=== PATIENT | female | born 1990 | race Caucasian/White ===

== ENCOUNTER 2024-04-04 11:48 | Inpatient (IN) | payer MEDICAID, SELFPAY ==
--- NOTE | 2024-04-04 12:07 | ED_ITS ---
HPI - Psych General Chief Complaint: Psychiatric Symptoms Stated Complaint: SI PER EMS Time Seen by Provider: 04/04/24 11:59 Source: patient and EMS Mode of arrival: EMS Limitations: no limitations History of Present Illness ED Provider: CEASAR VARELA Narrative: 34 yo female with depression and opiate use disorder occasional ETOH use no hx of withdrawal seizures who presents here with SI. Was here with a friend who just left her here and now has no one and she notes she is not able to get her methadone dose and she feels helpless and has SI. No plan reported. MD complaint: suicidal ideation and feels depressed Onset (ago): day(s) (few) Duration: constant History of same: Yes Relieving factors: none Exacerbating factors: other Context: significant life stressor Associated psychiatric symptoms: depression and suicidal ideation Associated symptoms: denies other symptoms Treatments prior to arrival: none If self harm: admits thoughts of self harm Related Data Home Medications ?Medication ?Instructions ?Recorded ?Confirmed methadone 10 mg/mL oral 136 mg PO DAILY 04/04/24 04/04/24 concentrate (Methadone Intensol) Allergies Allergy/AdvReac Type Severity Reaction Status Date / Time paroxetine [From Paxil] Allergy Severe Seizure Verified 04/04/24 12:36 Review of Systems 2 Review of Systems: Constitutional : No Fever, No Chills ENT/Mouth : No Ear Pain, No Nasal Congestion, No sore throat Eyes: No Eye Pain, No Swelling, No Redness Cardiovascular : No Chest Pain, No SOB Respiratory : No Cough, No Sputum, No Dyspnea Gastrointestinal : No Nausea, No Vomiting, No Diarrhea, No Hematochezia, No Melena Genitourinary : No Dysuria, No Urinary Frequency, No Hematuria Musculoskeletal : No Myalgias Skin : No Skin Lesions, No rash Neuro : No Weakness, No Numbness, No Paresthesias, No Dizziness, No Headache Psych : positive Anxiety, positive Depression, positive SI no HI All other systems reviewed and are negative [facility] Past Medical History Attestation statement: The following information was validated with the patient. Source: old records reviewed Medical History (Updated 04/04/24 @ 13:40 by Ines George DO) Opiate use Depression Social History Social History (Updated 04/04/24 @ 12:43 by Ines George DO) Alcohol intake: current Patient Tobacco Use Status: Current someday Tobacco user Substance Use Type: Opiates Advance Directives: No Advance Directives Information Provided: No Physical Exam 2 Vital Signs: Vital Signs: Last Vital Signs Temp 97.9 F 04/04/24 12:20 Pulse 66 04/04/24 12:20 Resp 16 04/04/24 12:20 BP 145/95 H 04/04/24 12:20 Pulse Ox 100 04/04/24 12:20 O2 Del Method Room Air 04/04/24 12:20 BMI result Body Mass Index 25.7 Appearance: Alert. Oriented X3. No acute distress. Eyes: Pupils equal, round and reactive to light. ENT: Pharynx normal. Neck: Normal inspection. Neck supple. CVS: Normal heart rate and rhythm. Pulses normal. Respiratory: No respiratory distress. Breath sounds normal. Abdomen: Soft and non-tender. Skin: Skin warm and dry. Normal skin color. Extremities: No lower extremity edema. Neuro: Oriented X 3. No motor deficit. No sensory deficit. CN2-12 intact Course Course Course Narrative: mild anemia normal VS suspect chronic Medical Decision Making Medical Decision Making MDM Narrative: 34 yo female with depression and opiate use disorder here with c/o depresison and SI in setting of poor social support and being stranded here. No plan reported. At this time basic labs and CARE team consult, plan to verify her last methadone dose Differential Diagnosis Differential Diagnoses: The differential diagnosis associated with the presentation includes poor social support, lack of housing, opiate abuse Admission/Observation Consideration of admission/observation: Escalation of care including admission/observation considered physician observation started at 1244pm pending CARE team Consult Healthcare Provider Management of the patient was discussed with: Behavioral Health Provider Lab Data [facility] Lab Attestation statement: I reviewed the patient's lab results. 04/04/24 12:54 04/04/24 12:53 Labs: Lab Results 04/04/24 04/04/24 Range/Units 12:53 12:54 WBC 9.1 (4.8-10.8) X10*3/uL RBC 3.96 L (4.20-5.50) X10*6/uL Hgb 9.5 L (12.0-16.0) g/dl Hct 30.2 L (37.0-47.0) % MCV 76.3 L (80.0-98.0) fL MCH 24.0 L (27.0-33.0) pg MCHC 31.5 (31.0-35.0) g/dl RDW 19.7 H (11.0-16.0) % Plt Count 396 (160-400) X10*3/uL MPV 9.2 L (9.4-12.3) fL Immature Gran % (Auto) 0.3 (0.0-0.4) % Neut % (Auto) 52.7 (45-73) % Lymph % (Auto) 35.3 (20-40) % [place] % (Auto) 7.3 (2-11) % Eos % (Auto) 3.5 (0-4) % Baso % (Auto) 0.9 (0-2) % Lymph # (Auto) 3.2 (1.2-4.9) X10*3/uL [place] # (Auto) 0.7 (0.1-1.2) X10*3/uL Eos # (Auto) 0.3 (0.0-0.4) X10*3/uL Baso # (Auto) 0.1 (0.0-0.2) X10*3/uL Abs Immat Gran (auto) 0.03 (0.00-0.03) X10*3/uL Absolute Neuts (auto) 4.8 (2.0-8.3) x10*3/uL Absolute Nucleated RBC 0.000 (0.0-0.012) X10*3/uL Nucleated RBC % (auto) 0.0 (0.0-0.2) /100WBC Sodium 142 (135-145) mmol/L Potassium 3.8 (3.3-5.1) mmol/L Chloride 105 (96-108) mmol/L Carbon Dioxide 26 (22-29) mmol/L Anion Gap 15 (12-20) BUN 7 L (9-16) mg/dL Creatinine 0.63 (0.5-1.4) mg/dL Estim Creat Clear Calc 116.8 Estimated GFR > 60 Random Glucose 71 (60-115) mg/dL Calcium 9.9 (8.4-10.2) mg/dL Total Bilirubin 0.4 (0.0-1.0) mg/dL Direct Bilirubin 0.2 (0.0-0.5) mg/dL AST 14 (5-31) U/L ALT 17 (0-31) U/L Alkaline Phosphatase 93 (39-117) U/L Total Protein 7.4 (6.5-8.0) g/dL Albumin 4.3 (3.5-5.0) g/dL Beta HCG, Quant < 2 mIU/mL Ethyl Alcohol < 10 mg/dL Social Determinants Patient?s care significantly limited by Social Determinants of Health including: Inadequate housing and Problems related to primary support group Discharge Plan Discharge Clinical Impression: Depression, Anemia Patient Disposition: Still a Patient Instructions: Depression (ED), Anemia (ED) Prescriptions: No Action methadone [Methadone Intensol] 10 mg/mL Concentrate 136 mg PO DAILY Print Language: Bengali
[2024-04-04 12:20] VITALS: BP 140/90; BP 145/95; PULSE 66; PULSE 89; RESP 16; TEMP 36.6; O2SAT 100; O2SAT 97; BMI 25.7
[2024-04-04 13:01] LABS: MANUAL DIFF FLAG NO
[2024-04-04 13:04] LABS: Basophils Absolute Auto 0.1 X10*3/uL (0.0-0.2); Basophils Percent Auto 0.9 % (0-2); Eosinophils Absolute Auto 0.3 X10*3/uL (0.0-0.4); Eosinophils Percent Auto 3.5 % (0-4); Hematocrit 30.2 % (37.0-47.0); Hemoglobin 9.5 g/dl (12.0-16.0); Imm Gran Abs Auto 0.03 X10*3/uL (0.00-0.03); Imm Gran Pct Auto 0.3 % (0.0-0.4); Lymphocytes Absolute Auto 3.2 X10*3/uL (1.2-4.9); Lymphocytes Percent Auto 35.3 % (20-40); Mean Corpuscular HGB Conc 31.5 g/dl (31.0-35.0); Mean Corpuscular Volume 76.3 fL (80.0-98.0); Mean Platelet Volume 9.2 fL (9.4-12.3); Monocytes Absolute Auto 0.7 X10*3/uL (0.1-1.2); Monocytes Percent Auto 7.3 % (2-11); Neutrophils Absolute Auto 4.8 x10*3/uL (2.0-8.3); Neutrophils Percent Auto 52.7 % (45-73); Platelet Count 396 X10*3/uL (160-400); Red Blood Count 3.96 X10*6/uL (4.20-5.50); Red Cell Distribution Width 19.7 % (11.0-16.0); White Blood Count 9.1 X10*3/uL (4.8-10.8)
--- NOTE | 2024-04-04 13:28 | HE.PHANOTE ---
RE METHADONE VERIFICATION LAST DOSE 136 MG GIVEN 04/03/24 @ [facility] [place] ([phone])
[2024-04-04 13:38] LABS: Alanine Aminotransferase 17 U/L (0-31); Albumin Level 4.3 g/dL (3.5-5.0); Alkaline Phosphatase 93 U/L (39-117); Anion Gap 15 (12-20); Aspartate Amino Transferase 14 U/L (5-31); Bilirubin Direct 0.2 mg/dL (0.0-0.5); Bilirubin Total 0.4 mg/dL (0.0-1.0); Blood Urea Nitrogen 7 mg/dL (9-16); Calcium 9.9 mg/dL (8.4-10.2); Carbon Dioxide 26 mmol/L (22-29); Chloride 105 mmol/L (96-108); Creatinine Clr Calc Pharmacy 116.8; Estimated Glomerular Filt Rate > 60; Ethanol < 10 mg/dL; Glucose Random 71 mg/dL (60-115); HCG Quantitative < 2 mIU/mL; Potassium 3.8 mmol/L (3.3-5.1); Sodium 142 mmol/L (135-145); Total Protein 7.4 g/dL (6.5-8.0)
[2024-04-04] MEDS: methADONE HCl 20 MG/2 ML ORAL.CONC 136 MG PO (13:56)
[2024-04-04 14:43] VITALS: RESP 14
[2024-04-04 16:49] LABS: Appearance Urine Clear; Color Urine Yellow; Glucose Urine UA Negative (Negative); Leukocyte Esterase Urine Negative (Negative); Nitrite Urine Negative (Negative); Urine Blood Negative (Negative); Urine Ketones 15 mg/dL (Negative); Urine Protein Negative (Neg-Trace)
[2024-04-04 16:51] LABS: UPreg QC Valid YES; Urine Pregnancy NEGATIVE (NEGATIVE)
[2024-04-04 17:08] LABS: Amphetamine Screen Urine Not Detected (Not Detect); Barbiturates, Urine Not Detected (Not Detect); Benzodiazepines Screen Urine Not Detected (Not Detect); Buprenorphine Scr Not Detected (Not Detect); Cannabinoid Screen Urine Not Detected (Not Detect); Cocaine Screen Urine POSITIVE (Not Detect); Fentanyl, urine POSITIVE (Not Detect); Methadone Screen, Urine Positive (Not Detect); Opiate Screen Urine POSITIVE (Not Detect); Oxycodone Screen Urine Not Detected (Not Detect); Phencyclidine Screen Urine Not Detected (Not Detect)
--- NOTE | 2024-04-04 17:50 | PC.NURSE ---
Marlene comes to the ED today for increasing suicidal thoughts secondary to increasing life stressors. She is calm and cooperative, help seeking, offering no complaints at this time. Patient changed over without issue, methadone verified by this RN. Medications administered per MAR. patient aware of plan of care to see CARE team
[2024-04-04 17:52] VITALS: BP 140/78; PULSE 70; RESP 14; TEMP 36.3; O2SAT 100
[2024-04-04 21:00] VITALS: BP 130/76; PULSE 75; RESP 18; TEMP 36.4; O2SAT 100
[2024-04-04 22:29] VITALS: BP 130/76
[2024-04-04] MEDS: traZODone HCL 100 MG TABLET PO (22:29)
[2024-04-04] MEDS: LORazepam 1 MG TABLET PO (22:29)
[2024-04-04] MEDS: cloNIDine HCL 0.2 MG TABLET PO (22:29)
--- NOTE | 2024-04-05 | ECG_ITS ---
Test Reason : CHECK QTC Blood Pressure : / mmHG Vent. Rate : 050 BPM Atrial Rate : 050 BPM P-R Int : 140 ms QRS Dur : 098 ms QT Int : 494 ms P-R-T Axes : 045 063 043 degrees QTc Int : 450 ms Sinus bradycardia Otherwise normal ECG No previous ECGs available Referred By: Tammy Murray Electronically Signed By:KAREN CARDENAS
[2024-04-05 06:00] VITALS: BP 115/70; PULSE 62; RESP 16; TEMP 36.5; O2SAT 98
--- NOTE | 2024-04-05 06:50 | PC.NURSE ---
Patient slept through the night, no distress observed/reported, med and meal compliant, no behavior and safety concerns, disposition per care team current provider, VSVashti, will continue to monitor
[2024-04-05] MEDS: buPROPion HCl XL 150 MG TAB.ER.24H PO (09:21)
[2024-04-05 09:22] VITALS: BP 115/70
[2024-04-05] MEDS: methADONE HCl 20 MG/2 ML ORAL.CONC 136 MG PO (09:22)
[2024-04-05] MEDS: cloNIDine HCL 0.2 MG TABLET PO ×2 (09:22→20:53)
--- NOTE | 2024-04-05 14:46 | PC.NURSE ---
This Rn did report the patient's HR of 50 to attending and no changes are to be made at this time.
[2024-04-05 14:56] VITALS: BP 91/47; PULSE 61; RESP 12; TEMP 36.6; O2SAT 97
[2024-04-05 17:50] VITALS: BP 112/63; PULSE 63; RESP 17; TEMP 36.3; O2SAT 97
[2024-04-05 18:10] VITALS: BMI 27.2
--- NOTE | 2024-04-05 18:34 | PC.ADMIT ---
Pt is a 34 year old cisgendered female admitted to from the POD at 1725 for SI without a plan. Marlene suffers from MDD, Borderline PD, hx of cutting (last cut 2 years ago),anxiety, PTSD, OUD, and cocaine use disorder. After 3 years clean from opiates and on Methadone, she relapsed 2 months ago after learning that her 3 year old son who was in foster care, is now an open adoption. She signed a CV with Dr. Retana and was pleasant and calm. She currently reports vague SI I have nothing to live for. I just don't want to wake up, I'd be better off , but denies plan and states she will come to staff if she feels SI with plan. She has had increased depression, suicidal thoughts, and has been using crack cocaine, fentanyl, marijuana, and drinking heavily 1-2 times per month, tox screen positive for stated and takes Methadone 136 mg daily and received her dose in the ED this am. Marlene reports she has a long hx of psychiatric illness reporting she attempted suicide by hanging when 13 years old, (mom found her),started cutting at 17, and has had IPLOC stays at [facility] in [place]. She is from [place] but ended up in [place], I was using with a friend and he decided to drop me off at the library so he could go home and sleep. EMS was called and brought her here to [facility]. She smokes cigarettes and vapes daily and is interested in NRT and an addictions medicine consult. She also reports having neurofibromatosis and states her gait can be unsteady at times and she did have a fall in the past 6 months. Given red socks and identified as fall risk. Skin check done with 2 RN's and large bruise noted to left inner thigh, I asked my friend to shoot me up but she didn't know how too . She also pointed out a healing abscess to posterior scalp that she said was previously drained. Pt was oriented to the unit and [facility] forms signed.
[2024-04-05 20:00] VITALS: BP 100/56; PULSE 70; RESP 18; TEMP 36.7; O2SAT 98
[2024-04-05 20:53] VITALS: BP 100/56
[2024-04-05] MEDS: traZODone HCL 100 MG TABLET PO (20:54)
[2024-04-05] MEDS: hydrOXYzine HCL 25 MG TABLET PO (20:55)
[2024-04-06] MEDS: Acetaminophen 325 MG TABLET 650 MG PO ×2 (05:10→18:56)
[2024-04-06] MEDS: methADONE HCl 20 MG/2 ML ORAL.CONC 136 MG PO (07:50)
[2024-04-06 08:00] VITALS: BP 90/54; PULSE 56; RESP 14; TEMP 36.2
[2024-04-06 08:23] LABS: MANUAL DIFF FLAG NO
[2024-04-06 08:28] LABS: Basophils Absolute Auto 0.1 X10*3/uL (0.0-0.2); Basophils Percent Auto 0.5 % (0-2); Eosinophils Absolute Auto 0.2 X10*3/uL (0.0-0.4); Eosinophils Percent Auto 1.4 % (0-4); Hematocrit 29.6 % (37.0-47.0); Imm Gran Abs Auto 0.07 X10*3/uL (0.00-0.03); Imm Gran Pct Auto 0.5 % (0.0-0.4); Lymphocytes Absolute Auto 2.1 X10*3/uL (1.2-4.9); Lymphocytes Percent Auto 14.9 % (20-40); Mean Corpuscular HGB Conc 30.4 g/dl (31.0-35.0); Mean Corpuscular Hemoglobin 23.4 pg (27.0-33.0); Mean Corpuscular Volume 77.1 fL (80.0-98.0); Mean Platelet Volume 9.2 fL (9.4-12.3); Monocytes Percent Auto 6.9 % (2-11); Neutrophils Absolute Auto 10.9 x10*3/uL (2.0-8.3); Neutrophils Percent Auto 75.8 % (45-73); Platelet Count 361 X10*3/uL (160-400); Red Blood Count 3.84 X10*6/uL (4.20-5.50); Red Cell Distribution Width 20.3 % (11.0-16.0); White Blood Count 14.3 X10*3/uL (4.8-10.8)
[2024-04-06 08:34] LABS: Estimated Average Glucose 105 mg/dL; Hemoglobin A1c % 5.3 % (<6.0)
[2024-04-06 08:45] LABS: Cholesterol 108 mg/dL (<200); HDL Cholesterol 34 mg/dL (>40); LDL Cholesterol Calculated 59 mg/dL (<100); Triglycerides 76 mg/dL (<150)
[2024-04-06] MEDS: buPROPion HCl XL 150 MG TAB.ER.24H PO (08:55)
[2024-04-06 09:00] LABS: TSH reflex Free T4 0.14 uIU/mL (0.32-4.0)
[2024-04-06] MEDS: Nicotine 21 MG PATCH.TD24 TRANSDERMA (09:26)
[2024-04-06 09:40] LABS: Free T4 (Free Thyroxine) 0.87 ng/dL (0.71-1.85)
[2024-04-06 11:22] VITALS: BP 92/62
[2024-04-06] MEDS: cloNIDine HCL 0.2 MG TABLET PO ×2 (11:22→20:04)
[2024-04-06] MEDS: ARIPiprazole 5 MG TABLET PO (13:19)
[2024-04-06] MEDS: Throat Lozenge, Medicated LOZENGE 1 LOZENGE MUCOUS MEM ×2 (13:33→16:21)
[2024-04-06] MEDS: Baclofen 10 MG TABLET PO ×2 (15:13→20:04)
[2024-04-06 16:14] LABS: IDNOW Serial# 08D9AD1C; Strep A Nucleic Acid Positive (Negative)
[2024-04-06] MEDS: Throat Spray, Medicated 177 ML BOTTLE 1 SPRAY MUCOUS MEM ×2 (16:15→18:57)
--- NOTE | 2024-04-06 16:38 | HO.PSYADMNOT ---
HPI Date of Service: 04/06/24 Chief Complaint: SI Sources of Information: patient interviewed, chart reviewed and crisis/core team assessment reviewed HPI Subjective Notes: Reddy Warning and Conditional Voluntary Healthcare Proxy: No Guardianship: No Medical Problems Affecting Mental Status: No Narrative: 34 yo female, history of depression, presents with SI. Pt from [facility]. Reports 60-80 lb weight loss, relapse and increase in depressive sx due to loss of 3 yo to DCF in open adoption process. Garrett, her son had last visit with pt on 04/01. Reports she was told that reunification would be trialed and then was told she had to sign rights over to foster parents. She was told she would be allowed to keep in contact but then was told no and she needed to say good-bye. Now my life has nothing to show . Pt has an 11 yo child who lives with her mother whom she has contact with in addition. As a result, pt relapsed on cocaine, fentanyl. Feels in a rut. Hopes to improve how she feels psychiatrically and physically while in pt. Reports sore throat, chronic IBS-C, irregular menses, Neurofibromatosis without follow up in 18 years and a recent cyst which was drained 03/22/24 on the back of her scalp that has healed. Past Psychiatric History: IP: Several, the last being 3 years ago during with [facility] OP: [facility]-[place] [facility], [facility] [employer] for meds Trials: Multiple Medical Evaluation Reviewed: Yes [facility] Medical History (Updated 04/06/24 @ 18:38 by Saskia Dove, JARRED) Polysubstance use disorder Recurrent major depression Opiate use Depression Narrative: Neurofibromatosis IBS-C Irregular Menses 60-80 lb wt loss [employer] Family History: mental health issues Social History: Born in [place], Raised by both parents, Hx ADHD, 2 siblings, an older sister and a younger brother with severe mental health issues. Pt graduated high school and did start college Two children, ages 11 and 3 Substance History: Recent relapse Fentanyl, Cocaine Hx of Heroin, Fentanyl, Crack, Cocaine, some alcohol. Hx of treatment 2021 IOL, 2019. Believes 6 interventions in all Trauma History: Affirms Diagnostics Vital Signs (24Hr): Vital Signs - 24 hr 04/05/24 17:50 04/05/24 20:00 04/05/24 20:53 Temperature 97.3 F 98.1 F Pulse Rate 63 70 Respiratory Rate 17 18 Blood Pressure 112/63 100/56 L 100/56 L Pulse Oximetry 97 98 Oxygen Delivery Method Room Air Room Air 04/06/24 08:00 04/06/24 11:22 Temperature 97.1 F Pulse Rate 56 Respiratory Rate 14 Blood Pressure 90/54 L 92/62 Pulse Oximetry Oxygen Delivery Method BMI result Body Mass Index 27.2 Labs 04/06/24 08:12 04/04/24 12:53 Labs: Laboratory Results - last 48 hr 04/04/24 04/06/24 04/06/24 16:27 08:12 15:39 WBC 14.3 H RBC 3.84 L Hgb 9.0 L Hct 29.6 L MCV 77.1 L MCH 23.4 L MCHC 30.4 L RDW 20.3 H Plt Count 361 MPV 9.2 L Immature Gran % (Auto) 0.5 H Neut % (Auto) 75.8 H Lymph % (Auto) 14.9 L [place] % (Auto) 6.9 Eos % (Auto) 1.4 Baso % (Auto) 0.5 Lymph # (Auto) 2.1 [place] # (Auto) 1.0 Eos # (Auto) 0.2 Baso # (Auto) 0.1 Abs Immat Gran (auto) 0.07 H Absolute Neuts (auto) 10.9 H Absolute Nucleated RBC 0.000 Nucleated RBC % (auto) 0.0 Estimat Average Glucose 105 Hemoglobin A1c % 5.3 Triglycerides 76 Cholesterol 108 LDL Cholesterol, Calc 59 HDL Cholesterol 34 L TSH 0.14 L Free T4 0.87 Urine Color Yellow Urine Appearance Clear Urine pH 6.0 Ur Specific [place] 1.020 Urine Protein Negative Urine Glucose (UA) Negative Urine Ketones 15 Urine Blood Negative Urine Nitrite Negative Ur Leukocyte Esterase Negative Urine Test NEGATIVE Urine Opiates Screen POSITIVE H Ur Buprenorphine Scrn Not Detected Ur Oxycodone Screen Not Detected Urine Methadone Screen Positive H Urine Fentanyl Screen POSITIVE H Ur Barbiturates Screen Not Detected Ur Phencyclidine Scrn Not Detected Ur Amphetamines Screen Not Detected U Benzodiazepines Scrn Not Detected Urine Cocaine Screen POSITIVE H U Marijuana (THC) Screen Not Detected S. pyogenes GrpA KALPANA Positive A Meds/Allergies Meds Home Medications ?Medication ?Instructions ?Recorded ?Confirmed ?Type bupropion HCl 200 mg tablet,12 hr 200 mg PO QAM 04/04/24 04/04/24 History sustained-release clonidine HCl 0.2 mg tablet 0.2 mg PO BID 04/04/24 04/04/24 History lemborexant 5 mg tablet (Dayvigo) 5 mg PO DAILY 04/04/24 04/04/24 History methadone 10 mg/mL oral 136 mg PO DAILY 04/04/24 04/04/24 History concentrate (Methadone Intensol) trazodone 100 mg tablet 100 mg PO BEDTIME 04/04/24 04/04/24 History Allergies Allergies Allergy/AdvReac Type Severity Reaction Status Date / Time paroxetine [From Paxil] Allergy Severe Seizure Verified 04/04/24 12:36 Mental Status Exam Mental Status Exam Patient Appearance: Fatigued Patient Orientation: Person, Place, Time and Situation Level of Consciousness: Alert Patient Behavior: Talkative and Poor Eye Contact Mood Description: Depressed Affect Description: Flat Patient Cognition Impaired: No Ability to Follow Directions: Good Speech Pattern: Spontaneous Speech Memory Description: Intact Hallucinations: None Delusions: Not Present Perceptual Disturbances: Depersonalization and Derealization Thought Process: Rumination Thought Content: positive for Perseveration Depressive Symptoms: Increased Anxiety and Thoughts of /Suicide Judgement: Fair Assessment & Plan Assessment & Plan (1) Recurrent major depression: Status: Acute Code(s): F33.9 - Major depressive disorder, recurrent, unspecified (2) Polysubstance use disorder: Status: Acute Code(s): F19.90 - Other psychoactive substance use, unspecified, uncomplicated Plan Recurrent major depression Polysubstance Use Disorder Plan: Admit, CV, 15 minute checks Diagnostics-Strep/ROSY/Flu/RSV Positive strep-Pen VK 500 mg q8h x [address] in a private room due to strep + Monospot Nutrition consult Bowel regime-colace, miralax, senna, dulcolax prn Continue current regime Collateral contacts Full milieu Patient educated on: medication risk/benefits and medical condition Reason for continued inpatient stay Substantial Risk for: med/psych decompensation Statement Statement: I have reviewed the history and physical and performed a pertinent examination on my patient. No changes have occurred unless specified. If the History and Physical was not performed prior to admission, the Hospitalist's service will be consulted for completing the admission physical. Time Spent With Patient Time: Total time managing care of this patient today ____ minutes.
[2024-04-06 16:40] LABS: Influenza A PCR NEGATIVE (Negative); Influenza B PCR NEGATIVE (Negative); Resp Syncy Virus RNA Qual PCR NEGATIVE (Negative); SARS COV2 PCR INHOUSE NEGATIVE (Negative)
[2024-04-06 20:00] VITALS: BP 115/59; PULSE 80; RESP 17; TEMP 36.1; O2SAT 98
[2024-04-06 20:04] VITALS: BP 115/59
[2024-04-06] MEDS: Zolpidem Tartrate 5 MG TABLET PO (20:04)
[2024-04-06] MEDS: Docusate Sodium 100 MG CAPSULE PO (20:04)
[2024-04-06] MEDS: Penicillin V Potassium 250 MG TABLET 500 MG PO (20:04)
[2024-04-06] MEDS: Sennosides 8.6 MG TABLET PO (20:04)
[2024-04-06] MEDS: hydrOXYzine HCL 25 MG TABLET PO (20:04)
[2024-04-06] MEDS: traZODone HCL 100 MG TABLET PO (20:05)
[2024-04-07 07:00] VITALS: BMI 27.5
[2024-04-07] MEDS: methADONE HCl 20 MG/2 ML ORAL.CONC 136 MG PO (07:45)
[2024-04-07 08:00] VITALS: BP 103/54; PULSE 76; RESP 17; TEMP 36.9; O2SAT 94
[2024-04-07] MEDS: Nicotine 21 MG PATCH.TD24 TRANSDERMA (08:32)
[2024-04-07] MEDS: Penicillin V Potassium 250 MG TABLET 500 MG PO ×3 (08:32→20:14)
[2024-04-07] MEDS: ARIPiprazole 5 MG TABLET PO (08:33)
[2024-04-07] MEDS: Docusate Sodium 100 MG CAPSULE PO ×2 (08:33→20:14)
[2024-04-07] MEDS: Baclofen 10 MG TABLET PO ×3 (08:33→20:14)
[2024-04-07] MEDS: Acetaminophen 325 MG TABLET 650 MG PO (08:33)
[2024-04-07] MEDS: Throat Lozenge, Medicated LOZENGE 1 LOZENGE MUCOUS MEM ×2 (08:33→11:52)
[2024-04-07] MEDS: buPROPion HCl XL 150 MG TAB.ER.24H PO (08:34)
[2024-04-07] MEDS: polyethylene glycoL 3350 17 GM POWD.PACK PO (08:34)
[2024-04-07 09:29] LABS: Monotest Negative (Negative)
--- NOTE | 2024-04-07 11:47 | MHC.RECOVRN ---
AUDIT-C Brief Intervention Pt had positive screen for unhealthy alcohol use on admission, subsequently met with t/w to discuss alcohol use and recovery supports/options. Pt is not concerned regarding alcohol use but is aware that drinking at unhealthy levels is known to increase risk of alcohol related health problems. Pt reports alcohol use once per month. Pt reports alcohol use has not impacted health. Discussed risk reduction strategies including drinking below the recommended limit. Pt reports substance use is primary concern. Reports heroin/fentanyl use, up to 2 bundles daily, IN/INH/IV, as well as cocaine, INH, unknown amount, x 3 months. Pt reports she had been in recovery x 3 years but is going through the adoption process for her son which resulted in recurrence. Pt is currently receiving methadone, 136 mg x 3 years through an OTP in [place], where pt lives. Pt reports her mother is supportive as well as a couple friends. Provided pt with written resources including information on inpatient and outpatient treatment, JAYDEN, harm reduction, and recovery coaching. Pt plans to meet with the monomer recovery operator this evening. Pt provided with t/w contact information if questions or concerns arise. Denies other questions or concerns at this time.
[2024-04-07] MEDS: Ibuprofen 800 MG TABLET PO (11:52)
[2024-04-07] MEDS: Throat Spray, Medicated 177 ML BOTTLE 1 SPRAY MUCOUS MEM (11:56)
--- NOTE | 2024-04-07 12:16 | MHC.CLN ---
RE: CONSULT HT 63 WT 155# IBW 115#+/-10%, BMI 27.5 PT IS 135% IBW RANGES INDICATES OBESE FOR HT PT REPORTS 60-80# WT LOSS WITH UNKNOWN TIMEFRAME NO PREVIOUS WT HX AVAILABLE PT REPORTS FROM [facility] PT WITHOUT S/S MALNUTRITION AT THIS TIME ESTIMATED NUTRITION NEEDS: 1336KCALS, 58G PROTEIN, 1740ML FLUID REVIEWED LABS UNREMARKABLE; ALBUMIN 4.3 WNL DIET RX: REGULAR-APPROPRIATE PT RECEIVING ENSURE TID PROVIDES 1050KCALS, 60G PROTEIN PT REPORTS CONSUMING MEALS HERE SUPPLEMENT WILL OVER EXCEED ESTIMATED CALORIE NEEDS WITH GOOD PO INTAKE WITH MEALS RECOMMEND REDUCING ENSURE TO BID MONITOR PO INTAKE PT IS OF LOW NUTRITION RISK AT THIS TIME
--- NOTE | 2024-04-07 15:39 | P.PNPSI_ITS ---
Subjective Subjective Date of Service: 04/07/24 Reason For Visit: SI Subjective Notes: Conditional Voluntary Healthcare Proxy: No Guardianship: No Medical Problems Affecting Mental Status: No Interim History: Pt today is medically focused in her recovery from strep. She is resting, recovering. She tells team that she is not interested in referral to programs upon discharge but will return to her home in [place]. Medication Compliance: Yes Side effects from medications: No Attending Groups: No Review of Systems Acute medical concerns: No Strep Medical Review of Systems: unchanged Review of Systems Review of Systems strep Mental Status Exam Mental Status Exam Patient Appearance: Fatigued Patient Orientation: Person, Place, Time and Situation Level of Consciousness: Alert Patient Behavior: Talkative and Poor Eye Contact Mood Description: Depressed Affect Description: Flat Patient Cognition Impaired: No Ability to Follow Directions: Good Speech Pattern: Spontaneous Speech Memory Description: Intact Hallucinations: None Delusions: Not Present Perceptual Disturbances: Depersonalization and Derealization Thought Process: Rumination Thought Content: positive for Perseveration Depressive Symptoms: Increased Anxiety and Thoughts of /Suicide Judgement: Fair Diagnostics Vital Signs (24Hr): Vital Signs - 24 hr 04/06/24 20:00 04/06/24 20:04 04/07/24 08:00 Temperature 97.0 F 98.5 F Pulse Rate 80 76 Respiratory Rate 17 17 Blood Pressure 115/59 L 115/59 L 103/54 L Pulse Oximetry 98 94 Oxygen Delivery Method Room Air BMI result Body Mass Index 27.5 Labs 04/06/24 08:12 04/04/24 12:53 Labs: Laboratory Results - last 48 hr 04/06/24 04/06/24 04/06/24 08:12 15:39 15:52 WBC 14.3 H RBC 3.84 L Hgb 9.0 L Hct 29.6 L MCV 77.1 L MCH 23.4 L MCHC 30.4 L RDW 20.3 H Plt Count 361 MPV 9.2 L Immature Gran % (Auto) 0.5 H Neut % (Auto) 75.8 H Lymph % (Auto) 14.9 L [place] % (Auto) 6.9 Eos % (Auto) 1.4 Baso % (Auto) 0.5 Lymph # (Auto) 2.1 [place] # (Auto) 1.0 Eos # (Auto) 0.2 Baso # (Auto) 0.1 Abs Immat Gran (auto) 0.07 H Absolute Neuts (auto) 10.9 H Absolute Nucleated RBC 0.000 Nucleated RBC % (auto) 0.0 Estimat Average Glucose 105 Hemoglobin A1c % 5.3 Triglycerides 76 Cholesterol 108 LDL Cholesterol, Calc 59 HDL Cholesterol 34 L TSH 0.14 L Free T4 0.87 Monoscreen Influenza Type A (PCR) NEGATIVE Influenza Type B (PCR) NEGATIVE RSV RNA Qual (PCR) NEGATIVE SARS-CoV-2 RNA (RT-PCR) NEGATIVE S. pyogenes GrpA KAL[place]NA Positive A 04/07/24 08:20 WBC RBC Hgb Hct MCV MCH MCHC RDW Plt Count MPV Immature Gran % (Auto) Neut % (Auto) Lymph % (Auto) [place] % (Auto) Eos % (Auto) Baso % (Auto) Lymph # (Auto) [place] # (Auto) Eos # (Auto) Baso # (Auto) Abs Immat Gran (auto) Absolute Neuts (auto) Absolute Nucleated RBC Nucleated RBC % (auto) Estimat Average Glucose Hemoglobin A1c % Triglycerides Cholesterol LDL Cholesterol, Calc HDL Cholesterol TSH Free T4 Monoscreen Negative Influenza Type A (PCR) Influenza Type B (PCR) RSV RNA Qual (PCR) SARS-CoV-2 RNA (RT-PCR) S. pyogenes GrpA [place]NA Medications Medications Current Medications Acetaminophen (Acetaminophen 325 Mg Tablet) 650 mg PO Q6H PRN PRN Reason: Headache/Pain Mild Scale (1-3) Last Admin: 04/07/24 08:33 Dose: 650 mg Al Hydroxide/Mg Hydroxide (Magnesium Hydrox/Alum Hydrox 30 Ml Oral.Susp) 30 ml PO Q6H PRN PRN Reason: Heartburn/Nausea Aripiprazole (Aripiprazole 5 Mg Tablet) 5 mg PO DAILY [facility] Last Admin: 04/07/24 08:33 Dose: 5 mg Baclofen (Baclofen 10 Mg Tablet) 10 mg PO TID [facility] Last Admin: 04/07/24 14:23 Dose: 10 mg Benzocaine (Throat Lozenge, Medicated Lozenge) 1 lozenge MUCOUS MEM Q2H PRN PRN Reason: Sore Throat Last Admin: 04/07/24 11:52 Dose: 1 lozenge Bisacodyl (Bisacodyl 5 Mg Tablet.Dr) 10 mg PO DAILY PRN PRN Reason: Constipation Bupropion HCl (Bupropion Hcl Xl 150 Mg Tab.Er.24h) 150 mg PO DAILY [facility] Last Admin: 04/07/24 08:34 Dose: 150 mg Clonidine HCl (Clonidine Hcl 0.2 Mg Tablet) 0.2 mg PO TID PRN; Protocol PRN Reason: anxiety Last Admin: 04/06/24 20:04 Dose: 0.2 mg Docusate Sodium (Docusate Sodium 100 Mg Capsule) 100 mg PO BID [facility] Last Admin: 04/07/24 08:33 Dose: 100 mg Hydroxyzine HCl (Hydroxyzine Hcl 25 Mg Tablet) 25 mg PO Q6H PRN PRN Reason: Anxiety Last Admin: 04/06/24 20:04 Dose: 25 mg Ibuprofen (Ibuprofen 800 Mg Tablet) 800 mg PO Q8H PRN PRN Reason: Pain, Moderate(Pain Scale 4-6) Last Admin: 04/07/24 11:52 Dose: 800 mg Magnesium Hydroxide (Milk Of Magnesia 30 Ml Oral.Susp) 30 ml PO DAILY PRN PRN Reason: Constipation Methadone HCl (Methadone Hcl 20 Mg/2 Ml Oral.Conc) 136 mg PO DAILY [facility] Last Admin: 04/07/24 07:45 Dose: 136 mg Multi-Ingred Medicated Throat [place] (Throat [place], Medicated 177 Ml Bottle) 1 spray MUCOUS MEM Q2H PRN PRN Reason: Sore Throat Last Admin: 04/07/24 11:56 Dose: 1 spray Nicotine (Nicotine 21 Mg Patch.Td24) 21 mg TRANSDERMA DAILY PRN PRN Reason: smoking cessation Last Admin: 04/07/24 08:32 Dose: 21 mg Nicotine Polacrilex (Nicotine Polacrilex 2 Mg Gum) 4 mg BUCCAL Q2H PRN PRN Reason: Nicotine Cravings Penicillin V Potassium (Penicillin V Potassium 250 Mg Tablet) 500 mg PO TID [facility] Stop: 04/16/24 21:01 Last Admin: 04/07/24 14:23 Dose: 500 mg Polyethylene Glycol (Polyethylene Glycol 3350 17 Gm Powd.Pack) 17 gm PO DAILY [facility] Last Admin: 04/07/24 08:34 Dose: 17 gm Senna (Sennosides 8.6 Mg Tablet) 8.6 mg PO BEDTIME [facility] Last Admin: 04/06/24 20:04 Dose: 8.6 mg Trazodone HCl (Trazodone Hcl 100 Mg Tablet) 100 mg PO BEDTIME [facility] Last Admin: 04/06/24 20:05 Dose: 100 mg Trazodone HCl (Trazodone Hcl 50 Mg Tablet) 50 mg PO BEDTIME MRX1 PRN PRN Reason: Insomnia Zolpidem Tartrate (Zolpidem Tartrate 5 Mg Tablet) 5 mg PO BEDTIME PRN PRN Reason: Insomnia Last Admin: 04/06/24 20:04 Dose: 5 mg Allergies Allergies Allergy/AdvReac Type Severity Reaction Status Date / Time paroxetine [From Paxil] Allergy Severe Seizure Verified 04/04/24 12:36 Assessment & Plan Assessment & Plan (1) Recurrent major depression: Status: Acute Code(s): F33.9 - Major depressive disorder, recurrent, unspecified (2) Polysubstance use disorder: Status: Acute Code(s): F19.90 - Other psychoactive substance use, unspecified, uncomplicated Plan Recurrent major depression Polysubstance Use Disorder Plan: Admit, CV, 15 minute checks Diagnostics-Strep/ROSY/Flu/RSV Positive strep-Pen VK 500 mg q8h x [address] in a private room due to strep + Monospot Nutrition consult Bowel regime-colace, miralax, senna, dulcolax prn Continue current regime Collateral contacts Full milieu 04/07 recovering from strep encourage milie discharge planning Reason for continued inpatient stay Substantial Risk for: rapid decompensation and med/psych decompensation Time Spent With Patient Time: Total time managing care of this patient today ____ minutes.
--- NOTE | 2024-04-07 17:25 | MHC.RECOVSUP ---
? Reason for consult Recovery Support o Current location: [address] <del>o</del> <del>Identified</del> <del>substance</del> <del>use</del> <del>concern:</del> <del>-</del> <del>Overdose</del> <del>-</del> <del>Withdrawal</del> <del>-</del> <del>Seeking</del> <del>ATS</del> <del>(detox)</del> <del>-</del> <del>Support</del> <del>?</del> <del>Intervention:</del> <del>o</del> <del>ATS</del> <del>bed</del> <del>search</del> <del>started/completed/in</del> <del>process</del> <del>o</del> <del>MAT</del> <del>started</del> <del>or</del> <del>to</del> <del>be</del> <del>started</del> <del>o</del> <del>Community</del> <del>resources</del> <del>provided</del> <del>o</del> <del>Harm</del> <del>reduction</del> <del>discussion</del> <del>?</del> <del>Plan:</del> <del>o</del> <del>Referral</del> <del>to</del> <del>[facility]del> <del>o</del> <del>Bed</del> <del>search</del> <del>in</del> <del>progress</del> <del>to</del> <del>o</del> <del>Follow</del> <del>up</del> <del>tomorrow</del> <del>o</del> <del>Patient</del> <del>awaiting</del> <del>crisis</del> <del>evaluation</del> <del>o</del> <del>Patient</del> <del>to</del> <del>follow</del> <del>up</del> <del>with</del> <del>[facility]</del> <del>after</del> <del>discharge</del> ? Additional information: Attempt to meet with patient, But Patient was feeling sick at the time.
[2024-04-07 20:00] VITALS: BP 116/62; PULSE 68; RESP 18; TEMP 36.6; O2SAT 97
[2024-04-07] MEDS: Sennosides 8.6 MG TABLET PO (20:14)
[2024-04-07] MEDS: traZODone HCL 100 MG TABLET PO (20:14)
[2024-04-08] MEDS: Throat Lozenge, Medicated LOZENGE 1 LOZENGE MUCOUS MEM (01:53)
[2024-04-08 08:00] VITALS: BP 120/59; PULSE 95; RESP 16; TEMP 36.9; O2SAT 95
[2024-04-08] MEDS: methADONE HCl 20 MG/2 ML ORAL.CONC 136 MG PO (08:03)
[2024-04-08] MEDS: Baclofen 10 MG TABLET PO ×3 (09:27→20:22)
[2024-04-08] MEDS: Docusate Sodium 100 MG CAPSULE PO ×2 (09:27→20:22)
[2024-04-08] MEDS: Penicillin V Potassium 250 MG TABLET 500 MG PO ×3 (09:27→20:22)
[2024-04-08] MEDS: buPROPion HCl XL 150 MG TAB.ER.24H PO (09:27)
[2024-04-08] MEDS: Nicotine 21 MG PATCH.TD24 TRANSDERMA (09:27)
[2024-04-08] MEDS: ARIPiprazole 5 MG TABLET PO (09:27)
[2024-04-08] MEDS: Ibuprofen 800 MG TABLET PO (09:30)
[2024-04-08] MEDS: polyethylene glycoL 3350 17 GM POWD.PACK PO (09:33)
--- NOTE | 2024-04-08 11:48 | HO.PSYCHPN ---
Subjective Subjective Date of Service: 04/08/24 Reason For Visit: SI Subjective Notes: Conditional Voluntary Healthcare Proxy: No Guardianship: No Medical Problems Affecting Mental Status: No Interim History: Reports some improvement Team is encouraging milieu involvement and discharge planning Pt continues to decline program referral Medication Compliance: Yes Side effects from medications: No Attending Groups: No Review of Systems Acute medical concerns: No strep Medical Review of Systems: unchanged Review of Systems Review of Systems strep Mental Status Exam Mental Status Exam Patient Appearance: Fatigued Patient Orientation: Person, Place, Time and Situation Level of Consciousness: Alert Patient Behavior: Talkative and Poor Eye Contact Mood Description: Depressed Affect Description: Flat Patient Cognition Impaired: No Ability to Follow Directions: Good Speech Pattern: Spontaneous Speech Memory Description: Intact Hallucinations: None Delusions: Not Present Perceptual Disturbances: Depersonalization and Derealization Thought Process: Rumination Thought Content: positive for Perseveration Depressive Symptoms: Increased Anxiety and Thoughts of /Suicide Judgement: Fair Diagnostics Vital Signs (24Hr): Vital Signs - 24 hr 04/07/24 20:00 04/08/24 08:00 Temperature 97.8 F 98.5 F Pulse Rate 68 95 Respiratory Rate 18 16 Blood Pressure 116/62 120/59 L Pulse Oximetry 97 95 Oxygen Delivery Method Room Air Room Air BMI result Body Mass Index 27.5 Labs 04/06/24 08:12 04/04/24 12:53 Labs: Laboratory Results - last 48 hr 04/06/24 04/06/24 04/07/24 15:39 15:52 08:20 Monoscreen Negative Influenza Type A (PCR) NEGATIVE Influenza Type B (PCR) NEGATIVE RSV RNA Qual (PCR) NEGATIVE SARS-CoV-2 RNA (RT-PCR) NEGATIVE S. pyogenes GrpA [place] Positive A Medications Medications Current Medications Acetaminophen (Acetaminophen 325 Mg Tablet) 650 mg PO Q6H PRN PRN Reason: Headache/Pain Mild Scale (1-3) Last Admin: 04/07/24 08:33 Dose: 650 mg Al Hydroxide/Mg Hydroxide (Magnesium Hydrox/Alum Hydrox 30 Ml Oral.Susp) 30 ml PO Q6H PRN PRN Reason: Heartburn/Nausea Aripiprazole (Aripiprazole 5 Mg Tablet) 5 mg PO DAILY [facility] Last Admin: 04/08/24 09:27 Dose: 5 mg Baclofen (Baclofen 10 Mg Tablet) 10 mg PO TID [facility] Last Admin: 04/08/24 09:27 Dose: 10 mg Benzocaine (Throat Lozenge, Medicated Lozenge) 1 lozenge MUCOUS MEM Q2H PRN PRN Reason: Sore Throat Last Admin: 04/08/24 01:53 Dose: 1 lozenge Bisacodyl (Bisacodyl 5 Mg Tablet.Dr) 10 mg PO DAILY PRN PRN Reason: Constipation Bupropion HCl (Bupropion Hcl Xl 150 Mg Tab.Er.24h) 150 mg PO DAILY [facility] Last Admin: 04/08/24 09:27 Dose: 150 mg Clonidine HCl (Clonidine Hcl 0.2 Mg Tablet) 0.2 mg PO TID PRN; Protocol PRN Reason: anxiety Last Admin: 04/06/24 20:04 Dose: 0.2 mg Docusate Sodium (Docusate Sodium 100 Mg Capsule) 100 mg PO BID [facility] Last Admin: 04/08/24 09:27 Dose: 100 mg Hydroxyzine HCl (Hydroxyzine Hcl 25 Mg Tablet) 25 mg PO Q6H PRN PRN Reason: Anxiety Last Admin: 04/06/24 20:04 Dose: 25 mg Ibuprofen (Ibuprofen 800 Mg Tablet) 800 mg PO Q8H PRN PRN Reason: Pain, Moderate(Pain Scale 4-6) Last Admin: 04/08/24 09:30 Dose: 800 mg Magnesium Hydroxide (Milk Of Magnesia 30 Ml Oral.Susp) 30 ml PO DAILY PRN PRN Reason: Constipation Methadone HCl (Methadone Hcl 20 Mg/2 Ml Oral.Conc) 136 mg PO DAILY [facility] Last Admin: 04/08/24 08:03 Dose: 136 mg Multi-Ingred Medicated Throat [place] (Throat [place], Medicated 177 Ml Bottle) 1 spray MUCOUS MEM Q2H PRN PRN Reason: Sore Throat Last Admin: 04/07/24 11:56 Dose: 1 spray Nicotine (Nicotine 21 Mg Patch.Td24) 21 mg TRANSDERMA DAILY PRN PRN Reason: smoking cessation Last Admin: 04/08/24 09:27 Dose: 21 mg Nicotine Polacrilex (Nicotine Polacrilex 2 Mg Gum) 4 mg BUCCAL Q2H PRN PRN Reason: Nicotine Cravings Penicillin V Potassium (Penicillin V Potassium 250 Mg Tablet) 500 mg PO TID [facility] Stop: 04/16/24 21:01 Last Admin: 04/08/24 09:27 Dose: 500 mg Polyethylene Glycol (Polyethylene Glycol 3350 17 Gm Powd.Pack) 17 gm PO DAILY [facility] Last Admin: 04/08/24 09:33 Dose: 17 gm Senna (Sennosides 8.6 Mg Tablet) 8.6 mg PO BEDTIME [facility] Last Admin: 04/07/24 20:14 Dose: 8.6 mg Trazodone HCl (Trazodone Hcl 100 Mg Tablet) 100 mg PO BEDTIME [facility] Last Admin: 04/07/24 20:14 Dose: 100 mg Trazodone HCl (Trazodone Hcl 50 Mg Tablet) 50 mg PO BEDTIME MRX1 PRN PRN Reason: Insomnia Zolpidem Tartrate (Zolpidem Tartrate 5 Mg Tablet) 5 mg PO BEDTIME PRN PRN Reason: Insomnia Last Admin: 04/06/24 20:04 Dose: 5 mg Allergies Allergies Allergy/AdvReac Type Severity Reaction Status Date / Time paroxetine [From Paxil] Allergy Severe Seizure Verified 04/04/24 12:36 Assessment & Plan Assessment & Plan (1) Recurrent major depression: Status: Acute Code(s): F33.9 - Major depressive disorder, recurrent, unspecified (2) Polysubstance use disorder: Status: Acute Code(s): F19.90 - Other psychoactive substance use, unspecified, uncomplicated Plan Recurrent major depression Polysubstance Use Disorder Plan: Admit, CV, 15 minute checks Diagnostics-Strep/ROSY/Flu/RSV Positive strep-Pen VK 500 mg q8h x [address] in a private room due to strep + Monospot Nutrition consult Bowel regime-colace, miralax, senna, dulcolax prn Continue current regime Collateral contacts Full milieu 04/08/24 Discharge planning Reason for continued inpatient stay Substantial Risk for: rapid decompensation and med/psych decompensation Time Spent With Patient Time: Total time managing care of this patient today ____ minutes.
[2024-04-08 20:00] VITALS: BP 120/72; PULSE 73; RESP 15; TEMP 36.1; O2SAT 98
[2024-04-08] MEDS: Sennosides 8.6 MG TABLET PO (20:23)
[2024-04-08] MEDS: traZODone HCL 100 MG TABLET PO (20:23)
[2024-04-09] MEDS: methADONE HCl 20 MG/2 ML ORAL.CONC 136 MG PO (07:54)
[2024-04-09 08:00] VITALS: BP 108/68; PULSE 62; RESP 16; TEMP 36.4; O2SAT 98
[2024-04-09] MEDS: Nicotine 21 MG PATCH.TD24 TRANSDERMA (09:10)
[2024-04-09] MEDS: ARIPiprazole 5 MG TABLET PO (09:10)
[2024-04-09] MEDS: Docusate Sodium 100 MG CAPSULE PO ×2 (09:10→20:59)
[2024-04-09] MEDS: buPROPion HCl XL 150 MG TAB.ER.24H PO (09:10)
[2024-04-09] MEDS: Baclofen 10 MG TABLET PO ×3 (09:10→20:59)
[2024-04-09] MEDS: Penicillin V Potassium 250 MG TABLET 500 MG PO ×3 (09:11→20:59)
[2024-04-09] MEDS: polyethylene glycoL 3350 17 GM POWD.PACK PO (09:11)
[2024-04-09] MEDS: Ibuprofen 800 MG TABLET PO (09:16)
--- NOTE | 2024-04-09 09:25 | P.PNPSI_ITS ---
Subjective Subjective Date of Service: 04/09/24 Reason For Visit: SI Subjective Notes: Conditional Voluntary Interim History: Patient was seen and discussed in rounds today. Records and plans were reviewed. She continues to be doing better from her strep throat. Somewhat social. Eating and sleeping adequately. No complaint of anxiety and dep SI. No changes were made today. No side effects. No changes were made today Review of Systems Review of Systems Yes all other systems are reviewed and are negative Mental Status Exam Mental Status Exam Patient Appearance: Fatigued Patient Orientation: Person, Place, Time and Situation Level of Consciousness: Alert Patient Behavior: Talkative and Poor Eye Contact Mood Description: Depressed Affect Description: Flat Patient Cognition Impaired: No Ability to Follow Directions: Good Speech Pattern: Spontaneous Speech Memory Description: Intact Hallucinations: None Delusions: Not Present Perceptual Disturbances: Depersonalization and Derealization Thought Process: Rumination Thought Content: positive for Perseveration Depressive Symptoms: Increased Anxiety and Thoughts of /Suicide Judgement: Fair Diagnostics Vital Signs (24Hr): Vital Signs - 24 hr 04/08/24 20:00 Temperature 96.9 F Pulse Rate 73 Respiratory Rate 15 Blood Pressure 120/72 Pulse Oximetry 98 BMI result Body Mass Index 27.5 Labs 04/06/24 08:12 04/04/24 12:53 Labs: Laboratory Results - last 48 hr 04/07/24 08:20 Monoscreen Negative Medications Medications Current Medications Acetaminophen (Acetaminophen 325 Mg Tablet) 650 mg PO Q6H PRN PRN Reason: Headache/Pain Mild Scale (1-3) Last Admin: 04/07/24 08:33 Dose: 650 mg Al Hydroxide/Mg Hydroxide (Magnesium Hydrox/Alum Hydrox 30 Ml Oral.Susp) 30 ml PO Q6H PRN PRN Reason: Heartburn/Nausea Aripiprazole (Aripiprazole 5 Mg Tablet) 5 mg PO DAILY [facility] Last Admin: 04/09/24 09:10 Dose: 5 mg Baclofen (Baclofen 10 Mg Tablet) 10 mg PO TID [facility] Last Admin: 04/09/24 09:10 Dose: 10 mg Benzocaine (Throat Lozenge, Medicated Lozenge) 1 lozenge MUCOUS MEM Q2H PRN PRN Reason: Sore Throat Last Admin: 04/08/24 01:53 Dose: 1 lozenge Bisacodyl (Bisacodyl 5 Mg Tablet.) 10 mg PO DAILY PRN PRN Reason: Constipation Bupropion HCl (Bupropion Hcl Xl 150 Mg Tab.Er.24h) 150 mg PO DAILY [facility] Last Admin: 04/09/24 09:10 Dose: 150 mg Clonidine HCl (Clonidine Hcl 0.2 Mg Tablet) 0.2 mg PO TID PRN; Protocol PRN Reason: anxiety Last Admin: 04/06/24 20:04 Dose: 0.2 mg Docusate Sodium (Docusate Sodium 100 Mg Capsule) 100 mg PO BID [facility] Last Admin: 04/09/24 09:10 Dose: 100 mg Hydroxyzine HCl (Hydroxyzine Hcl 25 Mg Tablet) 25 mg PO Q6H PRN PRN Reason: Anxiety Last Admin: 04/06/24 20:04 Dose: 25 mg Ibuprofen (Ibuprofen 800 Mg Tablet) 800 mg PO Q8H PRN PRN Reason: Pain, Moderate(Pain Scale 4-6) Last Admin: 04/09/24 09:16 Dose: 800 mg Magnesium Hydroxide (Milk Of Magnesia 30 Ml Oral.Susp) 30 ml PO DAILY PRN PRN Reason: Constipation Methadone HCl (Methadone Hcl 20 Mg/2 Ml Oral.Conc) 136 mg PO DAILY [facility] Last Admin: 04/09/24 07:54 Dose: 136 mg Multi-Ingred Medicated Throat [place] (Throat [place], Medicated 177 Ml Bottle) 1 spray MUCOUS MEM Q2H PRN PRN Reason: Sore Throat Last Admin: 04/07/24 11:56 Dose: 1 spray Nicotine (Nicotine 21 Mg Patch.Td24) 21 mg TRANSDERMA DAILY PRN PRN Reason: smoking cessation Last Admin: 04/09/24 09:10 Dose: 21 mg Nicotine Polacrilex (Nicotine Polacrilex 2 Mg Gum) 4 mg BUCCAL Q2H PRN PRN Reason: Nicotine Cravings Penicillin V Potassium (Penicillin V Potassium 250 Mg Tablet) 500 mg PO TID [facility] Stop: 04/16/24 21:01 Last Admin: 04/09/24 09:11 Dose: 500 mg Polyethylene Glycol (Polyethylene Glycol 3350 17 Gm Powd.Pack) 17 gm PO DAILY [facility] Last Admin: 04/09/24 09:11 Dose: 17 gm Senna (Sennosides 8.6 Mg Tablet) 8.6 mg PO BEDTIME [facility] Last Admin: 04/08/24 20:23 Dose: 8.6 mg Trazodone HCl (Trazodone Hcl 100 Mg Tablet) 100 mg PO BEDTIME [facility] Last Admin: 04/08/24 20:23 Dose: 100 mg Trazodone HCl (Trazodone Hcl 50 Mg Tablet) 50 mg PO BEDTIME MRX1 PRN PRN Reason: Insomnia Zolpidem Tartrate (Zolpidem Tartrate 5 Mg Tablet) 5 mg PO BEDTIME PRN PRN Reason: Insomnia Last Admin: 04/06/24 20:04 Dose: 5 mg Allergies Allergies Allergy/AdvReac Type Severity Reaction Status Date / Time paroxetine [From Paxil] Allergy Severe Seizure Verified 04/04/24 12:36 Assessment & Plan Assessment & Plan (1) Recurrent major depression: Status: Acute Code(s): F33.9 - Major depressive disorder, recurrent, unspecified (2) Polysubstance use disorder: Status: Acute Code(s): F19.90 - Other psychoactive substance use, unspecified, uncomplicated Plan Recurrent major depression Polysubstance Use Disorder Plan: Admit, CV, 15 minute checks Diagnostics-Strep/ROSY/Flu/RSV Positive strep-Pen VK 500 mg q8h x [address] in a private room due to strep + Monospot Nutrition consult Bowel regime-colace, miralax, senna, dulcolax prn Continue current regime Collateral contacts Full milieu 04/08/24 Discharge planning 04/09: Continue current regimen and plans Reason for continued inpatient stay Substantial Risk for: med/psych decompensation Time Spent With Patient Time: Total time managing care of this patient today ____ minutes.
[2024-04-09 14:56] VITALS: BP 110/74
[2024-04-09] MEDS: cloNIDine HCL 0.2 MG TABLET PO ×2 (14:56→20:59)
[2024-04-09 20:00] VITALS: BP 117/71; PULSE 76; RESP 16; TEMP 36.4; O2SAT 97
[2024-04-09 20:59] VITALS: BP 109/64
[2024-04-09] MEDS: traZODone HCL 100 MG TABLET PO (20:59)
[2024-04-09] MEDS: Sennosides 8.6 MG TABLET PO (20:59)
[2024-04-10] MEDS: Acetaminophen 325 MG TABLET 650 MG PO (05:25)
[2024-04-10] MEDS: methADONE HCl 20 MG/2 ML ORAL.CONC 136 MG PO (07:33)
--- NOTE | 2024-04-10 08:00 | P.PNPSI_ITS ---
Subjective Subjective Date of Service: 04/10/24 Reason For Visit: SI Subjective Notes: Conditional Voluntary Interim History: Patient was seen and discussed in rounds today. Records and plans were reviewed. She has been stable and is doing better and sore throat has resolved but continues to be on antibiotics. Eating and sleeping adequately. Continues to endorse depression and anxiety. No SI. No complaints or side effects. No changes were made today Mental Status Exam Mental Status Exam Patient Appearance: Fatigued Patient Orientation: Person, Place, Time and Situation Level of Consciousness: Alert Patient Behavior: Talkative and Poor Eye Contact Mood Description: Depressed Affect Description: Flat Patient Cognition Impaired: No Ability to Follow Directions: Good Speech Pattern: Spontaneous Speech Memory Description: Intact Hallucinations: None Delusions: Not Present Perceptual Disturbances: Depersonalization and Derealization Thought Process: Rumination Thought Content: positive for Perseveration Depressive Symptoms: Increased Anxiety and Thoughts of /Suicide Judgement: Fair Diagnostics Vital Signs (24Hr): Vital Signs - 24 hr 04/09/24 14:56 04/09/24 20:00 04/09/24 20:59 Temperature 97.5 F Pulse Rate 76 Respiratory Rate 16 Blood Pressure 110/74 117/71 109/64 Pulse Oximetry 97 Oxygen Delivery Method Room Air BMI result Body Mass Index 27.5 Labs 04/06/24 08:12 04/04/24 12:53 Medications Medications Current Medications Acetaminophen (Acetaminophen 325 Mg Tablet) 650 mg PO Q6H PRN PRN Reason: Headache/Pain Mild Scale (1-3) Last Admin: 04/10/24 05:25 Dose: 650 mg Al Hydroxide/Mg Hydroxide (Magnesium Hydrox/Alum Hydrox 30 Ml Oral.Susp) 30 ml PO Q6H PRN PRN Reason: Heartburn/Nausea Aripiprazole (Aripiprazole 5 Mg Tablet) 5 mg PO DAILY [facility] Last Admin: 04/09/24 09:10 Dose: 5 mg Baclofen (Baclofen 10 Mg Tablet) 10 mg PO TID [facility] Last Admin: 04/09/24 20:59 Dose: 10 mg Benzocaine (Throat Lozenge, Medicated Lozenge) 1 lozenge MUCOUS MEM Q2H PRN PRN Reason: Sore Throat Last Admin: 04/08/24 01:53 Dose: 1 lozenge Bisacodyl (Bisacodyl 5 Mg Tablet.Dr) 10 mg PO DAILY PRN PRN Reason: Constipation Bupropion HCl (Bupropion Hcl Xl 150 Mg Tab.Er.24h) 150 mg PO DAILY [facility] Last Admin: 04/09/24 09:10 Dose: 150 mg Clonidine HCl (Clonidine Hcl 0.2 Mg Tablet) 0.2 mg PO TID PRN; Protocol PRN Reason: anxiety Last Admin: 04/09/24 20:59 Dose: 0.2 mg Docusate Sodium (Docusate Sodium 100 Mg Capsule) 100 mg PO BID [facility] Last Admin: 04/09/24 20:59 Dose: 100 mg Hydroxyzine HCl (Hydroxyzine Hcl 25 Mg Tablet) 25 mg PO Q6H PRN PRN Reason: Anxiety Last Admin: 04/06/24 20:04 Dose: 25 mg Ibuprofen (Ibuprofen 800 Mg Tablet) 800 mg PO Q8H PRN PRN Reason: Pain, Moderate(Pain Scale 4-6) Last Admin: 04/09/24 09:16 Dose: 800 mg Magnesium Hydroxide (Milk Of Magnesia 30 Ml Oral.Susp) 30 ml PO DAILY PRN PRN Reason: Constipation Methadone HCl (Methadone Hcl 20 Mg/2 Ml Oral.Conc) 136 mg PO DAILY [facility] Last Admin: 04/10/24 07:33 Dose: 136 mg Multi-Ingred Medicated Throat [place] (Throat [place], Medicated 177 Ml Bottle) 1 spray MUCOUS MEM Q2H PRN PRN Reason: Sore Throat Last Admin: 04/07/24 11:56 Dose: 1 spray Nicotine (Nicotine 21 Mg Patch.Td24) 21 mg TRANSDERMA DAILY PRN PRN Reason: smoking cessation Last Admin: 04/09/24 09:10 Dose: 21 mg Nicotine Polacrilex (Nicotine Polacrilex 2 Mg Gum) 4 mg BUCCAL Q2H PRN PRN Reason: Nicotine Cravings Penicillin V Potassium (Penicillin V Potassium 250 Mg Tablet) 500 mg PO TID [facility] Stop: 04/16/24 21:01 Last Admin: 04/09/24 20:59 Dose: 500 mg Polyethylene Glycol (Polyethylene Glycol 3350 17 Gm Powd.Pack) 17 gm PO DAILY [facility] Last Admin: 04/09/24 09:11 Dose: 17 gm Senna (Sennosides 8.6 Mg Tablet) 8.6 mg PO BEDTIME [facility] Last Admin: 04/09/24 20:59 Dose: 8.6 mg Trazodone HCl (Trazodone Hcl 100 Mg Tablet) 100 mg PO BEDTIME [facility] Last Admin: 04/09/24 20:59 Dose: 100 mg Trazodone HCl (Trazodone Hcl 50 Mg Tablet) 50 mg PO BEDTIME MRX1 PRN PRN Reason: Insomnia Zolpidem Tartrate (Zolpidem Tartrate 5 Mg Tablet) 5 mg PO BEDTIME PRN PRN Reason: Insomnia Last Admin: 04/06/24 20:04 Dose: 5 mg Allergies Allergies Allergy/AdvReac Type Severity Reaction Status Date / Time paroxetine [From Paxil] Allergy Severe Seizure Verified 04/04/24 12:36 Assessment & Plan Assessment & Plan (1) Recurrent major depression: Status: Acute Code(s): F33.9 - Major depressive disorder, recurrent, unspecified (2) Polysubstance use disorder: Status: Acute Code(s): F19.90 - Other psychoactive substance use, unspecified, uncomplicated Plan Recurrent major depression Polysubstance Use Disorder Plan: Admit, CV, 15 minute checks Diagnostics-Strep/ROSY/Flu/RSV Positive strep-Pen VK 500 mg q8h x [address] in a private room due to strep + Monospot Nutrition consult Bowel regime-colace, miralax, senna, dulcolax prn Continue current regime Collateral contacts Full milieu 04/08/24 Discharge planning 04/09: Continue current regimen and plans 04/10: Continue current regimen and planslan Reason for continued inpatient stay Substantial Risk for: med/psych decompensation Time Spent With Patient Time: Total time managing care of this patient today ____ minutes.
[2024-04-10] MEDS: polyethylene glycoL 3350 17 GM POWD.PACK PO (08:57)
[2024-04-10] MEDS: Nicotine 21 MG PATCH.TD24 TRANSDERMA (08:58)
[2024-04-10] MEDS: Docusate Sodium 100 MG CAPSULE PO ×2 (08:58→20:47)
[2024-04-10] MEDS: Penicillin V Potassium 250 MG TABLET 500 MG PO ×3 (08:58→20:48)
[2024-04-10] MEDS: Baclofen 10 MG TABLET PO ×3 (08:58→20:48)
[2024-04-10] MEDS: buPROPion HCl XL 150 MG TAB.ER.24H PO (08:59)
[2024-04-10] MEDS: ARIPiprazole 5 MG TABLET PO (08:59)
[2024-04-10 09:39] VITALS: BP 116/72; PULSE 67; RESP 16; TEMP 36.2; O2SAT 99
[2024-04-10] MEDS: Nicotine Polacrilex 2 MG GUM 4 MG BUCCAL (15:25)
[2024-04-10] MEDS: cloNIDine HCL 0.2 MG TABLET PO (15:28)
[2024-04-10 19:39] VITALS: BP 114/63; PULSE 66; RESP 15; TEMP 36.8; O2SAT 98
[2024-04-10] MEDS: Sennosides 8.6 MG TABLET PO (20:47)
[2024-04-10] MEDS: traZODone HCL 100 MG TABLET PO (20:48)
[2024-04-11] MEDS: methADONE HCl 20 MG/2 ML ORAL.CONC 136 MG PO (07:38)
[2024-04-11 08:00] VITALS: BP 113/58; PULSE 70; RESP 16; TEMP 36.6; O2SAT 98
[2024-04-11] MEDS: Docusate Sodium 100 MG CAPSULE PO ×2 (09:14→20:51)
[2024-04-11] MEDS: Penicillin V Potassium 250 MG TABLET 500 MG PO ×3 (09:14→20:51)
[2024-04-11] MEDS: Nicotine 21 MG PATCH.TD24 TRANSDERMA (09:14)
[2024-04-11] MEDS: polyethylene glycoL 3350 17 GM POWD.PACK PO (09:14)
[2024-04-11] MEDS: buPROPion HCl XL 150 MG TAB.ER.24H PO (09:15)
[2024-04-11] MEDS: ARIPiprazole 5 MG TABLET PO (09:15)
[2024-04-11] MEDS: Ibuprofen 800 MG TABLET PO (09:15)
[2024-04-11] MEDS: Baclofen 10 MG TABLET PO ×3 (09:15→20:51)
[2024-04-11 12:32] VITALS: BP 116/62
[2024-04-11] MEDS: cloNIDine HCL 0.2 MG TABLET PO (12:32)
[2024-04-11] MEDS: Acetaminophen 325 MG TABLET 650 MG PO (15:20)
--- NOTE | 2024-04-11 15:35 | HO.PSYCHPN ---
Subjective Subjective Date of Service: 04/11/24 Reason For Visit: SI Subjective Notes: Conditional Voluntary Healthcare Proxy: No Guardianship: No Medical Problems Affecting Mental Status: No Interim History: Pt reports her throat is improving. She reports she slept most of the weekend and is now focusing on attending groups to strengthen coping skills. Discussed mood stabilization. Will trial Trileptal. Discussed her discomfort with a male peer. Discussed discharge for this week and what she needs to do to prepare to return to her apartment. The environment is rough and I need to be grounded and focused to survive there . Discussed a plan to meet with room-mates when she arrives at home to set some basic ground rules for the home to make it easier for all who reside there. Discussed the loss of her child to adoption. Medication Compliance: Yes Side effects from medications: No Attending Groups: Yes Review of Systems Acute medical concerns: No Medical Review of Systems: unchanged Review of Systems Review of Systems Improvement of strep throat. Mental Status Exam Mental Status Exam Patient Appearance: Appropriate Patient Orientation: Person, Place, Time and Situation Level of Consciousness: Alert Patient Behavior: Talkative and Good Eye Contact Mood Description: Depressed Affect Description: Flat Patient Cognition Impaired: No Ability to Follow Directions: Good Speech Pattern: Spontaneous Speech Memory Description: Intact Hallucinations: None Perceptual Disturbances: Depersonalization Thought Content: positive for Perseveration Judgement: Fair Diagnostics Vital Signs (24Hr): Vital Signs - 24 hr 04/10/24 19:39 04/11/24 08:00 04/11/24 12:32 Temperature 98.2 F 98 F Pulse Rate 66 70 Respiratory Rate 15 16 Blood Pressure 114/63 113/58 L 116/62 Pulse Oximetry 98 98 Oxygen Delivery Method Room Air BMI result Body Mass Index 27.5 Labs 04/06/24 08:12 04/04/24 12:53 Medications Medications Current Medications Acetaminophen (Acetaminophen 325 Mg Tablet) 650 mg PO Q6H PRN PRN Reason: Headache/Pain Mild Scale (1-3) Last Admin: 04/11/24 15:20 Dose: 650 mg Al Hydroxide/Mg Hydroxide (Magnesium Hydrox/Alum Hydrox 30 Ml Oral.Susp) 30 ml PO Q6H PRN PRN Reason: Heartburn/Nausea Aripiprazole (Aripiprazole 5 Mg Tablet) 5 mg PO DAILY [facility] Last Admin: 04/11/24 09:15 Dose: 5 mg Baclofen (Baclofen 10 Mg Tablet) 10 mg PO TID [facility] Last Admin: 04/11/24 15:20 Dose: 10 mg Benzocaine (Throat Lozenge, Medicated Lozenge) 1 lozenge MUCOUS MEM Q2H PRN PRN Reason: Sore Throat Last Admin: 04/08/24 01:53 Dose: 1 lozenge Bisacodyl (Bisacodyl 5 Mg Tablet.Dr) 10 mg PO DAILY PRN PRN Reason: Constipation Bupropion HCl (Bupropion Hcl Xl 150 Mg Tab.Er.24h) 150 mg PO DAILY [facility] Last Admin: 04/11/24 09:15 Dose: 150 mg Clonidine HCl (Clonidine Hcl 0.2 Mg Tablet) 0.2 mg PO TID PRN; Protocol PRN Reason: anxiety Last Admin: 04/11/24 12:32 Dose: 0.2 mg Docusate Sodium (Docusate Sodium 100 Mg Capsule) 100 mg PO BID [facility] Last Admin: 04/11/24 09:14 Dose: 100 mg Hydroxyzine HCl (Hydroxyzine Hcl 25 Mg Tablet) 25 mg PO Q6H PRN PRN Reason: Anxiety Last Admin: 04/06/24 20:04 Dose: 25 mg Ibuprofen (Ibuprofen 800 Mg Tablet) 800 mg PO Q8H PRN PRN Reason: Pain, Moderate(Pain Scale 4-6) Last Admin: 04/11/24 09:15 Dose: 800 mg Magnesium Hydroxide (Milk Of Magnesia 30 Ml Oral.Susp) 30 ml PO DAILY PRN PRN Reason: Constipation Methadone HCl (Methadone Hcl 20 Mg/2 Ml Oral.Conc) 136 mg PO DAILY [facility] Last Admin: 04/11/24 07:38 Dose: 136 mg Multi-Ingred Medicated Throat [place] (Throat [place], Medicated 177 Ml Bottle) 1 spray MUCOUS MEM Q2H PRN PRN Reason: Sore Throat Last Admin: 04/07/24 11:56 Dose: 1 spray Nicotine (Nicotine 21 Mg Patch.Td24) 21 mg TRANSDERMA DAILY PRN PRN Reason: smoking cessation Last Admin: 04/11/24 09:14 Dose: 21 mg Nicotine Polacrilex (Nicotine Polacrilex 2 Mg Gum) 4 mg BUCCAL Q2H PRN PRN Reason: Nicotine Cravings Last Admin: 04/10/24 15:25 Dose: 4 mg Oxcarbazepine (Oxcarbazepine 300 Mg Tablet) 300 mg PO BID [facility] Penicillin V Potassium (Penicillin V Potassium 250 Mg Tablet) 500 mg PO TID [facility] Stop: 04/16/24 21:01 Last Admin: 04/11/24 15:20 Dose: 500 mg Polyethylene Glycol (Polyethylene Glycol 3350 17 Gm Powd.Pack) 17 gm PO DAILY [facility] Last Admin: 04/11/24 09:14 Dose: 17 gm Senna (Sennosides 8.6 Mg Tablet) 8.6 mg PO BEDTIME [facility] Last Admin: 04/10/24 20:47 Dose: 8.6 mg Trazodone HCl (Trazodone Hcl 100 Mg Tablet) 100 mg PO BEDTIME [facility] Last Admin: 04/10/24 20:48 Dose: 100 mg Trazodone HCl (Trazodone Hcl 50 Mg Tablet) 50 mg PO BEDTIME MRX1 PRN PRN Reason: Insomnia Zolpidem Tartrate (Zolpidem Tartrate 5 Mg Tablet) 5 mg PO BEDTIME PRN PRN Reason: Insomnia Last Admin: 04/06/24 20:04 Dose: 5 mg Allergies Allergies Allergy/AdvReac Type Severity Reaction Status Date / Time paroxetine [From Paxil] Allergy Severe Seizure Verified 04/04/24 12:36 Assessment & Plan Assessment & Plan (1) Recurrent major depression: Status: Acute Code(s): F33.9 - Major depressive disorder, recurrent, unspecified (2) Polysubstance use disorder: Status: Acute Code(s): F19.90 - Other psychoactive substance use, unspecified, uncomplicated Plan Recurrent major depression Polysubstance Use Disorder Plan: Admit, CV, 15 minute checks Diagnostics-Strep/ROSY/Flu/RSV Positive strep-Pen VK 500 mg q8h x [address] in a private room due to strep + Monospot Nutrition consult Bowel regime-colace, miralax, senna, dulcolax prn Continue current regime Collateral contacts Full milieu 04/08/24 Discharge planning 04/09: Continue current regimen and plans 04/10: Continue current regimen and plan 04/11/24: Trileptal 300 mg bid Discharge planning for this week. Reason for continued inpatient stay Substantial Risk for: rapid decompensation Time Spent With Patient Time: Total time managing care of this patient today ____ minutes.
--- NOTE | 2024-04-11 17:52 | MHC.RECOVSUP ---
? Reason for consult Recovery Support o Current location: [facility] o Identified substance use concern: Heroin - Support ? Intervention: o Community resources provided o Harm reduction discussion ? Plan: o Patient to follow up with H after discharge ? Additional information:Met with Patient we talked about Recovery and the different pathways. We talked about Harm reduction and Mental health .
[2024-04-11 19:59] VITALS: BP 113/58; PULSE 77; RESP 15; TEMP 36.4; O2SAT 100
[2024-04-11] MEDS: Sennosides 8.6 MG TABLET PO (20:50)
[2024-04-11] MEDS: traZODone HCL 100 MG TABLET PO (20:50)
[2024-04-11] MEDS: OXcarbazepine 300 MG TABLET PO (20:51)
[2024-04-12] MEDS: Ibuprofen 800 MG TABLET PO ×2 (04:10→17:25)
[2024-04-12] MEDS: hydrOXYzine HCL 25 MG TABLET PO ×2 (04:10→20:39)
[2024-04-12] MEDS: methADONE HCl 20 MG/2 ML ORAL.CONC 136 MG PO (07:52)
[2024-04-12 08:00] VITALS: BP 109/59; PULSE 76; RESP 18; TEMP 36.4; O2SAT 96
[2024-04-12] MEDS: ARIPiprazole 5 MG TABLET PO (08:57)
[2024-04-12] MEDS: Docusate Sodium 100 MG CAPSULE PO ×2 (08:58→20:32)
[2024-04-12] MEDS: OXcarbazepine 300 MG TABLET PO ×2 (08:58→20:33)
[2024-04-12] MEDS: Penicillin V Potassium 250 MG TABLET 500 MG PO ×3 (08:58→20:32)
[2024-04-12] MEDS: Baclofen 10 MG TABLET PO ×3 (08:58→20:33)
[2024-04-12] MEDS: polyethylene glycoL 3350 17 GM POWD.PACK PO (08:59)
[2024-04-12] MEDS: buPROPion HCl XL 150 MG TAB.ER.24H PO (08:59)
--- NOTE | 2024-04-12 12:34 | P.PNPSI_ITS ---
Subjective Subjective Date of Service: 04/12/24 Reason For Visit: SI Subjective Notes: Conditional Voluntary Healthcare Proxy: No Guardianship: No Medical Problems Affecting Mental Status: No Interim History: Reports feeling somewhat more tired and anergic today-?Trileptal start vs recovery process from strep. Discussed interaction with a male peer who was asked to leave the unit due to inappropriate behaviors. Pt relates this to issues of discharge and what she faces at times in her own neighborhood. Attending groups and continues with increase in sleep. Discharge planning in process. Medication Compliance: Yes Side effects from medications: Yes (possibly) Attending Groups: Yes Review of Systems Acute medical concerns: No Medical Review of Systems: unchanged Review of Systems Review of Systems recovery from strep Mental Status Exam Mental Status Exam Patient Appearance: Appropriate Patient Orientation: Person, Place, Time and Situation Level of Consciousness: Alert Patient Behavior: Talkative and Good Eye Contact Mood Description: Depressed Affect Description: Flat Patient Cognition Impaired: No Ability to Follow Directions: Good Speech Pattern: Spontaneous Speech Memory Description: Intact Hallucinations: None Perceptual Disturbances: Depersonalization Thought Content: positive for Perseveration Judgement: Fair Diagnostics Vital Signs (24Hr): Vital Signs - 24 hr 04/11/24 19:59 04/12/24 08:00 Temperature 97.6 F 97.6 F Pulse Rate 77 76 Respiratory Rate 15 18 Blood Pressure 113/58 L 109/59 L Pulse Oximetry 100 96 Oxygen Delivery Method Room Air BMI result Body Mass Index 27.5 Labs 04/06/24 08:12 04/04/24 12:53 Medications Medications Current Medications Acetaminophen (Acetaminophen 325 Mg Tablet) 650 mg PO Q6H PRN PRN Reason: Headache/Pain Mild Scale (1-3) Last Admin: 04/11/24 15:20 Dose: 650 mg Al Hydroxide/Mg Hydroxide (Magnesium Hydrox/Alum Hydrox 30 Ml Oral.Susp) 30 ml PO Q6H PRN PRN Reason: Heartburn/Nausea Aripiprazole (Aripiprazole 5 Mg Tablet) 5 mg PO DAILY [facility] Last Admin: 04/12/24 08:57 Dose: 5 mg Baclofen (Baclofen 10 Mg Tablet) 10 mg PO TID [facility] Last Admin: 04/12/24 08:58 Dose: 10 mg Benzocaine (Throat Lozenge, Medicated Lozenge) 1 lozenge MUCOUS MEM Q2H PRN PRN Reason: Sore Throat Last Admin: 04/08/24 01:53 Dose: 1 lozenge Bisacodyl (Bisacodyl 5 Mg Tablet.Dr) 10 mg PO DAILY PRN PRN Reason: Constipation Bupropion HCl (Bupropion Hcl Xl 150 Mg Tab.Er.24h) 150 mg PO DAILY [facility] Last Admin: 04/12/24 08:59 Dose: 150 mg Clonidine HCl (Clonidine Hcl 0.2 Mg Tablet) 0.2 mg PO TID PRN; Protocol PRN Reason: anxiety Last Admin: 04/11/24 12:32 Dose: 0.2 mg Docusate Sodium (Docusate Sodium 100 Mg Capsule) 100 mg PO BID [facility] Last Admin: 04/12/24 08:58 Dose: 100 mg Hydroxyzine HCl (Hydroxyzine Hcl 25 Mg Tablet) 25 mg PO Q6H PRN PRN Reason: Anxiety Last Admin: 04/12/24 04:10 Dose: 25 mg Ibuprofen (Ibuprofen 800 Mg Tablet) 800 mg PO Q8H PRN PRN Reason: Pain, Moderate(Pain Scale 4-6) Last Admin: 04/12/24 04:10 Dose: 800 mg Magnesium Hydroxide (Milk Of Magnesia 30 Ml Oral.Susp) 30 ml PO DAILY PRN PRN Reason: Constipation Methadone HCl (Methadone Hcl 20 Mg/2 Ml Oral.Conc) 136 mg PO DAILY [facility] Last Admin: 04/12/24 07:52 Dose: 136 mg Multi-Ingred Medicated Throat [place] (Throat [place], Medicated 177 Ml Bottle) 1 spray MUCOUS MEM Q2H PRN PRN Reason: Sore Throat Last Admin: 04/07/24 11:56 Dose: 1 spray Nicotine (Nicotine 21 Mg Patch.Td24) 21 mg TRANSDERMA DAILY PRN PRN Reason: smoking cessation Last Admin: 04/11/24 09:14 Dose: 21 mg Nicotine Polacrilex (Nicotine Polacrilex 2 Mg Gum) 4 mg BUCCAL Q2H PRN PRN Reason: Nicotine Cravings Last Admin: 04/10/24 15:25 Dose: 4 mg Oxcarbazepine (Oxcarbazepine 300 Mg Tablet) 300 mg PO BID [facility] Last Admin: 04/12/24 08:58 Dose: 300 mg Penicillin V Potassium (Penicillin V Potassium 250 Mg Tablet) 500 mg PO TID [facility] Stop: 04/16/24 21:01 Last Admin: 04/12/24 08:58 Dose: 500 mg Polyethylene Glycol (Polyethylene Glycol 3350 17 Gm Powd.Pack) 17 gm PO DAILY [facility] Last Admin: 04/12/24 08:59 Dose: 17 gm Senna (Sennosides 8.6 Mg Tablet) 8.6 mg PO BEDTIME [facility] Last Admin: 04/11/24 20:50 Dose: 8.6 mg Trazodone HCl (Trazodone Hcl 100 Mg Tablet) 100 mg PO BEDTIME [facility] Last Admin: 04/11/24 20:50 Dose: 100 mg Trazodone HCl (Trazodone Hcl 50 Mg Tablet) 50 mg PO BEDTIME MRX1 PRN PRN Reason: Insomnia Zolpidem Tartrate (Zolpidem Tartrate 5 Mg Tablet) 5 mg PO BEDTIME PRN PRN Reason: Insomnia Last Admin: 04/06/24 20:04 Dose: 5 mg Allergies Allergies Allergy/AdvReac Type Severity Reaction Status Date / Time paroxetine [From Paxil] Allergy Severe Seizure Verified 04/04/24 12:36 Assessment & Plan Assessment & Plan (1) Recurrent major depression: Status: Acute Code(s): F33.9 - Major depressive disorder, recurrent, unspecified (2) Polysubstance use disorder: Status: Acute Code(s): F19.90 - Other psychoactive substance use, unspecified, uncomplicated Plan Recurrent major depression Polysubstance Use Disorder Plan: Admit, CV, 15 minute checks Diagnostics-Strep/ROSY/Flu/RSV Positive strep-Pen VK 500 mg q8h x [address] in a private room due to strep + Monospot Nutrition consult Bowel regime-colace, miralax, senna, dulcolax prn Continue current regime Collateral contacts Full milieu 04/08/24 Discharge planning 04/09: Continue current regimen and plans 04/10: Continue current regimen and plan 04/12: Continue current tx. Reason for continued inpatient stay Substantial Risk for: rapid decompensation Time Spent With Patient Time: Total time managing care of this patient today ____ minutes.
[2024-04-12] MEDS: Nicotine 21 MG PATCH.TD24 TRANSDERMA (14:38)
[2024-04-12 20:00] VITALS: BP 144/66; PULSE 84; RESP 18; TEMP 36.5; O2SAT 97
[2024-04-12 20:32] VITALS: BP 144/66
[2024-04-12] MEDS: traZODone HCL 50 MG TABLET PO (20:32)
[2024-04-12] MEDS: cloNIDine HCL 0.2 MG TABLET PO (20:32)
[2024-04-12] MEDS: traZODone HCL 100 MG TABLET PO (20:32)
[2024-04-12] MEDS: Sennosides 8.6 MG TABLET PO (20:32)
[2024-04-12] MEDS: Acetaminophen 325 MG TABLET 650 MG PO (20:33)
[2024-04-13 08:00] VITALS: BP 113/58; PULSE 84; RESP 16; TEMP 36.8; O2SAT 98
[2024-04-13] MEDS: methADONE HCl 20 MG/2 ML ORAL.CONC 136 MG PO (08:02)
[2024-04-13] MEDS: buPROPion HCl XL 150 MG TAB.ER.24H PO (08:54)
[2024-04-13] MEDS: OXcarbazepine 300 MG TABLET PO ×2 (08:54→21:00)
[2024-04-13] MEDS: ARIPiprazole 5 MG TABLET PO (08:54)
[2024-04-13] MEDS: Docusate Sodium 100 MG CAPSULE PO ×2 (08:54→21:09)
[2024-04-13] MEDS: Baclofen 10 MG TABLET PO ×3 (08:54→21:02)
[2024-04-13] MEDS: Penicillin V Potassium 250 MG TABLET 500 MG PO ×3 (08:55→21:02)
[2024-04-13] MEDS: Ibuprofen 800 MG TABLET PO ×2 (08:55→21:01)
[2024-04-13] MEDS: polyethylene glycoL 3350 17 GM POWD.PACK PO (08:59)
[2024-04-13] MEDS: Nicotine 21 MG PATCH.TD24 TRANSDERMA (08:59)
--- NOTE | 2024-04-13 11:15 | P.PNPSI_ITS ---
Subjective Subjective Date of Service: 04/13/24 Reason For Visit: SI Subjective Notes: Conditional Voluntary Healthcare Proxy: No Guardianship: No Medical Problems Affecting Mental Status: No Interim History: Discharge planning for pt is completed. She will return to her apartment in [place], [place]. She and a peer have decided to share the apartment. Discussed that this was not encouraged by the team. She verbalized awareness and understanding of this Later in the evening, tw notified by Teresa Valenzuela RN that pt feels blindsided by discharge plan for 04/14. She reports that she began her admission with physical illness (strep) and did not feel up to going to [employer] activities and then a male peer made her uncomfortable so she did not attend, thus her time was cut. She requested to remain until 04/15 so she could continue to attend groups. She also reports with new initiation of Trileptal she wanted some more time to assess efficacy and side effects. Medication Compliance: Yes Side effects from medications: No Attending Groups: Yes Review of Systems Acute medical concerns: No Medical Review of Systems: unchanged Review of Systems Review of Systems Yes all other systems are reviewed and are negative Mental Status Exam Mental Status Exam Patient Appearance: Appropriate Patient Orientation: Person, Place, Time and Situation Level of Consciousness: Alert Patient Behavior: Talkative and Good Eye Contact Mood Description: Depressed Affect Description: Flat Patient Cognition Impaired: No Ability to Follow Directions: Good Speech Pattern: Spontaneous Speech Memory Description: Intact Hallucinations: None Perceptual Disturbances: Depersonalization Thought Content: positive for Perseveration Judgement: Fair Diagnostics Vital Signs (24Hr): Vital Signs - 24 hr 04/12/24 20:00 04/12/24 20:32 04/13/24 08:00 Temperature 97.7 F 98.3 F Pulse Rate 84 84 Respiratory Rate 18 16 Blood Pressure 144/66 H 144/66 H 113/58 L Pulse Oximetry 97 98 Oxygen Delivery Method Room Air Room Air BMI result Body Mass Index 27.5 Labs 04/06/24 08:12 04/04/24 12:53 Medications Medications Current Medications Acetaminophen (Acetaminophen 325 Mg Tablet) 650 mg PO Q6H PRN PRN Reason: Headache/Pain Mild Scale (1-3) Last Admin: 04/12/24 20:33 Dose: 650 mg Al Hydroxide/Mg Hydroxide (Magnesium Hydrox/Alum Hydrox 30 Ml Oral.Susp) 30 ml PO Q6H PRN PRN Reason: Heartburn/Nausea Aripiprazole (Aripiprazole 5 Mg Tablet) 5 mg PO DAILY [facility] Last Admin: 04/13/24 08:54 Dose: 5 mg Baclofen (Baclofen 10 Mg Tablet) 10 mg PO TID [facility] Last Admin: 04/13/24 08:54 Dose: 10 mg Benzocaine (Throat Lozenge, Medicated Lozenge) 1 lozenge MUCOUS MEM Q2H PRN PRN Reason: Sore Throat Last Admin: 04/08/24 01:53 Dose: 1 lozenge Bisacodyl (Bisacodyl 5 Mg Tablet.Dr) 10 mg PO DAILY PRN PRN Reason: Constipation Bupropion HCl (Bupropion Hcl Xl 150 Mg Tab.Er.24h) 150 mg PO DAILY [facility] Last Admin: 04/13/24 08:54 Dose: 150 mg Clonidine HCl (Clonidine Hcl 0.2 Mg Tablet) 0.2 mg PO TID PRN; Protocol PRN Reason: anxiety Last Admin: 04/12/24 20:32 Dose: 0.2 mg Docusate Sodium (Docusate Sodium 100 Mg Capsule) 100 mg PO BID [facility] Last Admin: 04/13/24 08:54 Dose: 100 mg Hydroxyzine HCl (Hydroxyzine Hcl 25 Mg Tablet) 25 mg PO Q6H PRN PRN Reason: Anxiety Last Admin: 04/12/24 20:39 Dose: 25 mg Ibuprofen (Ibuprofen 800 Mg Tablet) 800 mg PO Q8H PRN PRN Reason: Pain, Moderate(Pain Scale 4-6) Last Admin: 04/13/24 08:55 Dose: 800 mg Magnesium Hydroxide (Milk Of Magnesia 30 Ml Oral.Susp) 30 ml PO DAILY PRN PRN Reason: Constipation Methadone HCl (Methadone Hcl 20 Mg/2 Ml Oral.Conc) 136 mg PO DAILY [facility] Last Admin: 04/13/24 08:02 Dose: 136 mg Multi-Ingred Medicated Throat [place] (Throat [place], Medicated 177 Ml Bottle) 1 spray MUCOUS MEM Q2H PRN PRN Reason: Sore Throat Last Admin: 04/07/24 11:56 Dose: 1 spray Nicotine (Nicotine 21 Mg Patch.Td24) 21 mg TRANSDERMA DAILY PRN PRN Reason: smoking cessation Last Admin: 04/13/24 08:59 Dose: 21 mg Nicotine Polacrilex (Nicotine Polacrilex 2 Mg Gum) 4 mg BUCCAL Q2H PRN PRN Reason: Nicotine Cravings Last Admin: 04/10/24 15:25 Dose: 4 mg Oxcarbazepine (Oxcarbazepine 300 Mg Tablet) 300 mg PO BID [facility] Last Admin: 04/13/24 08:54 Dose: 300 mg Penicillin V Potassium (Penicillin V Potassium 250 Mg Tablet) 500 mg PO TID [facility] Stop: 04/16/24 21:01 Last Admin: 04/13/24 08:55 Dose: 500 mg Polyethylene Glycol (Polyethylene Glycol 3350 17 Gm Powd.Pack) 17 gm PO DAILY [facility] Last Admin: 04/13/24 08:59 Dose: 17 gm Senna (Sennosides 8.6 Mg Tablet) 8.6 mg PO BEDTIME [facility] Last Admin: 04/12/24 20:32 Dose: 8.6 mg Trazodone HCl (Trazodone Hcl 100 Mg Tablet) 100 mg PO BEDTIME [facility] Last Admin: 04/12/24 20:32 Dose: 100 mg Trazodone HCl (Trazodone Hcl 50 Mg Tablet) 50 mg PO BEDTIME MRX1 PRN PRN Reason: Insomnia Last Admin: 04/12/24 20:32 Dose: 50 mg Zolpidem Tartrate (Zolpidem Tartrate 5 Mg Tablet) 5 mg PO BEDTIME PRN PRN Reason: Insomnia Last Admin: 04/06/24 20:04 Dose: 5 mg Allergies Allergies Allergy/AdvReac Type Severity Reaction Status Date / Time paroxetine [From Paxil] Allergy Severe Seizure Verified 04/04/24 12:36 Assessment & Plan Assessment & Plan (1) Recurrent major depression: Status: Acute Code(s): F33.9 - Major depressive disorder, recurrent, unspecified (2) Polysubstance use disorder: Status: Acute Code(s): F19.90 - Other psychoactive substance use, unspecified, uncomplicated Plan Recurrent major depression Polysubstance Use Disorder Plan: Admit, CV, 15 minute checks Diagnostics-Strep/ROSY/Flu/RSV Positive strep-Pen VK 500 mg q8h x [address] in a private room due to strep + Monospot Nutrition consult Bowel regime-colace, miralax, senna, dulcolax prn Continue current regime Collateral contacts Full milieu 04/08/24 Discharge planning 04/09: Continue current regimen and plans 04/10: Continue current regimen and plan 04/12: Continue current tx. 04/13: Tolerating Trileptal. Pt asks to change discharge date to 04/15. Reason for continued inpatient stay Substantial Risk for: rapid decompensation Time Spent With Patient Time: Total time managing care of this patient today ____ minutes.
[2024-04-13] MEDS: hydrOXYzine HCL 25 MG TABLET PO ×2 (15:34→21:02)
[2024-04-13 19:55] VITALS: BP 126/60; PULSE 76; RESP 18; TEMP 36.3; O2SAT 99
[2024-04-13] MEDS: Zolpidem Tartrate 5 MG TABLET PO (21:01)
[2024-04-13] MEDS: traZODone HCL 100 MG TABLET PO (21:01)
[2024-04-13] MEDS: Sennosides 8.6 MG TABLET PO (21:02)
[2024-04-13] MEDS: cloNIDine HCL 0.2 MG TABLET PO (21:02)
[2024-04-14] MEDS: methADONE HCl 20 MG/2 ML ORAL.CONC 136 MG PO (07:47)
[2024-04-14 08:05] VITALS: BP 118/63; PULSE 76; RESP 16; TEMP 36.5; O2SAT 98
[2024-04-14] MEDS: ARIPiprazole 5 MG TABLET PO (08:46)
[2024-04-14] MEDS: Docusate Sodium 100 MG CAPSULE PO ×2 (08:46→22:08)
[2024-04-14] MEDS: Baclofen 10 MG TABLET PO ×3 (08:46→22:08)
[2024-04-14] MEDS: OXcarbazepine 300 MG TABLET PO ×2 (08:46→22:08)
[2024-04-14] MEDS: Penicillin V Potassium 250 MG TABLET 500 MG PO ×3 (08:46→22:08)
[2024-04-14] MEDS: buPROPion HCl XL 150 MG TAB.ER.24H PO (08:46)
[2024-04-14] MEDS: polyethylene glycoL 3350 17 GM POWD.PACK PO (08:46)
[2024-04-14] MEDS: Nicotine 21 MG PATCH.TD24 TRANSDERMA (08:50)
--- NOTE | 2024-04-14 10:29 | P.PNPSI_ITS ---
Subjective Subjective Date of Service: 04/14/24 Reason For Visit: SI Subjective Notes: Conditional Voluntary Healthcare Proxy: No Guardianship: No Medical Problems Affecting Mental Status: No Interim History: Reports poor sleep last night due to anxiety about possible discharge today. 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 Discussed anxiety about leaving, reports some relief from medication changes. Will have scheduled therapy appt on 04/19 and will return to her Methadone clinic on 04/16. Medication Compliance: Yes Side effects from medications: No Attending Groups: Yes Review of Systems Acute medical concerns: No Medical Review of Systems: unchanged Review of Systems Review of Systems Yes all other systems are reviewed and are negative Mental Status Exam Mental Status Exam Patient Appearance: Appropriate Patient Orientation: Person, Place, Time and Situation Level of Consciousness: Alert Patient Behavior: Talkative and Good Eye Contact Mood Description: Depressed Affect Description: Flat Patient Cognition Impaired: No Ability to Follow Directions: Good Speech Pattern: Spontaneous Speech Memory Description: Intact Hallucinations: None Perceptual Disturbances: Depersonalization Thought Content: positive for Perseveration Judgement: Fair Diagnostics Vital Signs (24Hr): Vital Signs - 24 hr 04/13/24 19:55 04/14/24 08:05 Temperature 97.3 F 97.7 F Pulse Rate 76 76 Respiratory Rate 18 16 Blood Pressure 126/60 118/63 Pulse Oximetry 99 98 Oxygen Delivery Method Room Air Room Air BMI result Body Mass Index 27.5 Labs 04/06/24 08:12 04/04/24 12:53 Medications Medications Current Medications Acetaminophen (Acetaminophen 325 Mg Tablet) 650 mg PO Q6H PRN PRN Reason: Headache/Pain Mild Scale (1-3) Last Admin: 04/12/24 20:33 Dose: 650 mg Al Hydroxide/Mg Hydroxide (Magnesium Hydrox/Alum Hydrox 30 Ml Oral.Susp) 30 ml PO Q6H PRN PRN Reason: Heartburn/Nausea Aripiprazole (Aripiprazole 5 Mg Tablet) 5 mg PO DAILY DOMINGO Last Admin: 04/14/24 08:46 Dose: 5 mg Baclofen (Baclofen 10 Mg Tablet) 10 mg PO TID DOMINGO Last Admin: 04/14/24 08:46 Dose: 10 mg Benzocaine (Throat Lozenge, Medicated Lozenge) 1 lozenge MUCOUS MEM Q2H PRN PRN Reason: Sore Throat Last Admin: 08/16/24 01:53 Dose: 1 lozenge Bisacodyl (Bisacodyl 5 Mg Tablet.Dr) 10 mg PO DAILY PRN PRN Reason: Constipation Bupropion HCl (Bupropion Hcl Xl 150 Mg Tab.Er.24h) 150 mg PO DAILY [facility] Last Admin: 04/14/24 08:46 Dose: 150 mg Clonidine HCl (Clonidine Hcl 0.2 Mg Tablet) 0.2 mg PO TID PRN; Protocol PRN Reason: anxiety Last Admin: 04/13/24 21:02 Dose: 0.2 mg Docusate Sodium (Docusate Sodium 100 Mg Capsule) 100 mg PO BID [facility] Last Admin: 04/14/24 08:46 Dose: 100 mg Hydroxyzine HCl (Hydroxyzine Hcl 25 Mg Tablet) 25 mg PO Q6H PRN PRN Reason: Anxiety Last Admin: 04/13/24 21:02 Dose: 25 mg Ibuprofen (Ibuprofen 800 Mg Tablet) 800 mg PO Q8H PRN PRN Reason: Pain, Moderate(Pain Scale 4-6) Last Admin: 04/13/24 21:01 Dose: 800 mg Magnesium Hydroxide (Milk Of Magnesia 30 Ml Oral.Susp) 30 ml PO DAILY PRN PRN Reason: Constipation Methadone HCl (Methadone Hcl 20 Mg/2 Ml Oral.Conc) 136 mg PO DAILY [facility] Last Admin: 04/14/24 07:47 Dose: 136 mg Multi-Ingred Medicated Throat [place] (Throat [place], Medicated 177 Ml Bottle) 1 spray MUCOUS MEM Q2H PRN PRN Reason: Sore Throat Last Admin: 04/07/24 11:56 Dose: 1 spray Nicotine (Nicotine 21 Mg Patch.Td24) 21 mg TRANSDERMA DAILY PRN PRN Reason: smoking cessation Last Admin: 04/14/24 08:50 Dose: 21 mg Nicotine Polacrilex (Nicotine Polacrilex 2 Mg Gum) 4 mg BUCCAL Q2H PRN PRN Reason: Nicotine Cravings Last Admin: 04/10/24 15:25 Dose: 4 mg Oxcarbazepine (Oxcarbazepine 300 Mg Tablet) 300 mg PO BID [facility] Last Admin: 04/14/24 08:46 Dose: 300 mg Penicillin V Potassium (Penicillin V Potassium 250 Mg Tablet) 500 mg PO TID [facility] Stop: 04/16/24 21:01 Last Admin: 04/14/24 08:46 Dose: 500 mg Polyethylene Glycol (Polyethylene Glycol 3350 17 Gm Powd.Pack) 17 gm PO DAILY [facility] Last Admin: 04/14/24 08:46 Dose: 17 gm Senna (Sennosides 8.6 Mg Tablet) 8.6 mg PO BEDTIME [facility]INGO Last Admin: 04/13/24 21:02 Dose: 8.6 mg Trazodone HCl (Trazodone Hcl 100 Mg Tablet) 100 mg PO BEDTIME [facility] Last Admin: 04/13/24 21:01 Dose: 100 mg Trazodone HCl (Trazodone Hcl 50 Mg Tablet) 50 mg PO BEDTIME MRX1 PRN PRN Reason: Insomnia Last Admin: 04/12/24 20:32 Dose: 50 mg Zolpidem Tartrate (Zolpidem Tartrate 5 Mg Tablet) 5 mg PO BEDTIME PRN PRN Reason: Insomnia Last Admin: 04/13/24 21:01 Dose: 5 mg Allergies Allergies Allergy/AdvReac Type Severity Reaction Status Date / Time paroxetine [From Paxil] Allergy Severe Seizure Verified 04/04/24 12:36 Assessment & Plan Assessment & Plan (1) Recurrent major depression: Status: Acute Code(s): F33.9 - Major depressive disorder, recurrent, unspecified (2) Polysubstance use disorder: Status: Acute Code(s): F19.90 - Other psychoactive substance use, unspecified, uncomplicated Plan Recurrent major depression Polysubstance Use Disorder Plan: Admit, CV, 15 minute checks Diagnostics-Strep/ROSY/Flu/RSV Positive strep-Pen VK 500 mg q8h x [address] in a private room due to strep + Monospot Nutrition consult Bowel regime-colace, miralax, senna, dulcolax prn Continue current regime Collateral contacts Full milieu 04/08/24 Discharge planning 04/09: Continue current regimen and plans 04/10: Continue current regimen and plan 04/12: Discharge 04/15 to home Reason for continued inpatient stay Substantial Risk for: stable for discharge Time Spent With Patient Time: Total time managing care of this patient today ____ minutes.
[2024-04-14] MEDS: Ondansetron ODT 4 MG TAB.RAPDIS TRANSLINGU ×2 (13:53→22:11)
[2024-04-14 14:17] VITALS: BMI 29.4
[2024-04-14] MEDS: Magnesium Hydrox/Alum Hydrox 30 ML ORAL.SUSP PO (17:59)
[2024-04-14 20:00] VITALS: BP 114/62; PULSE 76; RESP 18; TEMP 36.4; O2SAT 100
[2024-04-14] MEDS: traZODone HCL 50 MG TABLET PO (22:07)
[2024-04-14] MEDS: Zolpidem Tartrate 5 MG TABLET PO (22:08)
[2024-04-14] MEDS: Ibuprofen 800 MG TABLET PO (22:08)
[2024-04-14] MEDS: Sennosides 8.6 MG TABLET PO (22:08)
[2024-04-14] MEDS: traZODone HCL 100 MG TABLET PO (22:08)
[2024-04-14] MEDS: hydrOXYzine HCL 25 MG TABLET PO (22:08)
[2024-04-15] MEDS: traZODone HCL 50 MG TABLET PO (03:43)
[2024-04-15] MEDS: methADONE HCl 20 MG/2 ML ORAL.CONC 136 MG PO (07:52)
[2024-04-15] MEDS: Penicillin V Potassium 250 MG TABLET 500 MG PO (09:35)
[2024-04-15] MEDS: Ferrous Sulfate 324 MG TABLET.DR 325 MG PO (09:35)
[2024-04-15] MEDS: Docusate Sodium 100 MG CAPSULE PO (09:35)
[2024-04-15] MEDS: Baclofen 10 MG TABLET PO (09:35)
[2024-04-15] MEDS: polyethylene glycoL 3350 17 GM POWD.PACK PO (09:36)
[2024-04-15] MEDS: ARIPiprazole 5 MG TABLET PO (09:36)
[2024-04-15] MEDS: Nicotine 21 MG PATCH.TD24 TRANSDERMA (09:36)
[2024-04-15] MEDS: buPROPion HCl XL 150 MG TAB.ER.24H PO (09:36)
[2024-04-15] MEDS: Ibuprofen 800 MG TABLET PO (09:38)
[2024-04-15] MEDS: hydrOXYzine HCL 25 MG TABLET PO (09:38)
[2024-04-15] MEDS: Ondansetron ODT 4 MG TAB.RAPDIS TRANSLINGU (09:40)
[2024-04-15] MEDS: OXcarbazepine 300 MG TABLET PO (10:09)
[2024-04-15] MEDS: Naloxone HCl Nasal TAKE HOME 4 MG SPRAY 8 MG NOSTRILALT (11:11)
--- NOTE | 2024-04-15 17:38 | PM.PSYDC ---
DS: Providers Provider Date of Service: 04/15/24 Date of admission: 04/05/24 15:38 Date of discharge: 04/15/24 Primary care physician: Tanvi Physician Admitting clinician: Saskia Dove Attending physician on admission: Malachi Galan Consults: 04/05/24 18:20 Addiction Medicine Routine Consulting Provider: Addiction Covering Reason for consultation: relapsed 2 months ago after being clean for 3 years DS: Diagnosis Discharge Diagnosis (1) Recurrent major depression: Status: Acute (2) Polysubstance use disorder: Status: Acute DS: Medications Discharge Medications Home Medications: Home Medications ?Medication ?Instructions ?Recorded ?Confirmed lemborexant 5 mg tablet (Dayvigo) 5 mg PO DAILY 04/04/24 04/04/24 methadone 10 mg/mL oral 136 mg PO DAILY 04/04/24 04/04/24 concentrate (Methadone Intensol) Previous Rx's ?Medication ?Instructions ?Recorded lemborexant 5 mg tablet 5 mg PO BEDTIME #30 tabs 04/06/24 aripiprazole 5 mg tablet (Abilify) 5 mg PO DAILY #30 tabs 04/14/24 bisacodyl 5 mg tablet,delayed 10 mg (2 x 5 mg) PO DAILY PRN 04/14/24 release Constipation #15 tabs bupropion HCl 200 mg tablet,12 hr 200 mg PO QAM #30 tabs 04/14/24 sustained-release clonidine HCl 0.2 mg tablet 0.2 mg PO TID PRN anxiety #90 tabs 04/14/24 docusate sodium 100 mg capsule 100 mg PO BID #60 caps 04/14/24 ferrous sulfate 325 mg (65 mg 325 mg PO DAILY #30 tabs 04/14/24 iron) tablet multivitamin, stress formula 1 tab PO DAILY #30 tabs 04/14/24 (Stress Formula tablet) nicotine (polacrilex) 2 mg gum 4 mg buccal Q2H PRN Nicotine 04/14/24 Cravings #110 ea nicotine 21 mg/24 hr daily 21 mg transdermal DAILY PRN 04/14/24 transdermal patch smoking cessation #30 ea oxcarbazepine 300 mg tablet 300 mg PO BID #30 tabs 04/14/24 penicillin V potassium 250 mg 500 mg (2 x 250 mg) PO TID #6 tabs 04/14/24 tablet polyethylene glycol 3350 17 gram 17 g PO DAILY #30 ea 04/14/24 oral powder packet sennosides 8.6 mg tablet (Senna 8.6 mg PO BEDTIME #30 tabs 04/14/24 Lax) trazodone 100 mg tablet 100 mg PO BEDTIME #30 tabs 04/14/24 vitamin B comp and C no.3 15 mg-10 1 cap PO DAILY #30 caps 04/14/24 mg-50 mg-5 mg-300 mg capsule (B Complex Plus Vitamin C) Mental Status Exam Mental Status Exam Patient Appearance: Appropriate Patient Orientation: Person, Place, Time and Situation Level of Consciousness: Alert Patient Behavior: Talkative and Good Eye Contact Mood Description: Depressed Affect Description: Flat Patient Cognition Impaired: No Ability to Follow Directions: Good Speech Pattern: Spontaneous Speech Memory Description: Intact Hallucinations: None Perceptual Disturbances: Depersonalization Thought Content: positive for Perseveration Judgement: Fair DS: Summary Hospital Course Hospital Course: Admission to adult psychiatry for exacerbation of recurrent major depression, polysubstance use disorder. Pt transferred from [place], [place] with SI/Plan/Relapse on cocaine, fentanyl. Precipitant included finalization of open adoption of 3 yo son through [facility]. Medications were evaluated and adjusted. Medical issues were addressed. Pt tested positive for strep-antibiotics were initiated, IBSC sx were addressed as well as weight loss. Pt utilized the milieu to strengthen coping skills and grounding skills. She will return to her out patient teams in [place] and made a decision to share her home with a peer which the team encouarged her not to do. Status at Discharge Functional status at discharge: independent ambulation Overall status at discharge: patient is progressing back to baseline Time Spent with Patient Time attestation: Total time managing care of this patient today ____ minutes. Time spent: Less than 30 minutes Discharge Plan Discharge Anticipated Discharge Date/Time: 04/15/24 12:00 Patient Disposition: Home, Self-Care Discharge Diagnosis: Recurrent Major Depression Polysubstance Use Disorder Referrals: [facility] [Other] - 04/16/24 6:00 am (The med cab will pick you up at 5:30 am and take to you the clinic and pick you up to return to you home in [facility]. You MUST bring you last dose letter and discharge paperwork with you to this appt. ) Psychiatry lucinda Lopez [Other] - 1 Day (Please email her when you get access to the internet to secure an appt. I would advise you to bring your discharge paperwork with you to the appt. ) Therapy with [place] [Other] - 04/19/24 Physician,None [Primary Care Provider] - 1 Week Discharge Medications: New lemborexant 5 mg Tablet 5 mg PO BEDTIME Qty: 30 0RF penicillin V potassium 250 mg Tablet 500 mg PO TID Qty: 6 0RF sennosides [Senna Lax] 8.6 mg Tablet 8.6 mg PO BEDTIME Qty: 30 0RF polyethylene glycol 3350 17 gram Powder In Packet 17 g PO DAILY Qty: 30 0RF nicotine (polacrilex) 2 mg Gum 4 mg buccal Q2H PRN (Reason: Nicotine Cravings) Qty: 110 0RF oxcarbazepine 300 mg Tablet 300 mg PO BID Qty: 30 1RF clonidine HCl 0.2 mg Tablet 0.2 mg PO TID PRN (Reason: anxiety) Qty: 90 0RF Protocol: Hold for SBP< HOLD for SBP < : 90 nicotine 21 mg/24 hr Patch 24 Hour 21 mg transdermal DAILY PRN (Reason: smoking cessation) Qty: 30 0RF docusate sodium 100 mg Capsule 100 mg PO BID Qty: 60 0RF bisacodyl 5 mg Tablet,Delayed Release (Dr/Ec) 10 mg PO DAILY PRN (Reason: Constipation) Qty: 15 0RF aripiprazole [Abilify] 5 mg Tablet 5 mg PO DAILY Qty: 30 0RF Stress Formula Tablet 1 tab PO DAILY Qty: 30 0RF B Complex Plus Vitamin C [id number] mg capsule 1 cap PO DAILY Qty: 30 0RF Rx Instructions: give with food (meal/snack) ferrous sulfate 325 mg (65 mg iron) tablet 325 mg PO DAILY Qty: 30 0RF Continued methadone [Methadone Intensol] 10 mg/mL Concentrate 136 mg PO DAILY Dayvigo 5 mg tablet 5 mg PO DAILY trazodone 100 mg tablet 100 mg PO BEDTIME Qty: 30 0RF bupropion HCl 200 mg tablet sustained-release 12 hr 200 mg PO QAM Qty: 30 0RF Discontinued clonidine HCl 0.2 mg tablet 0.2 mg PO BID Discharge Orders: Discharge Order (Routine); Ordered 04/15/24 Ordered By: Saskia Dove Diet: Advance to usual diet Activity on Discharge: As tolerated Stand Alone Forms: Patient Portal Discharge page Print Language: Russian Care Plan Goals: Mood and Behavioral Stabilization Continue to work on abstinence from substance use Health Concerns: Mood and Behavioral Stabilization Continue to work on abstinence from substance use Plan of Treatment: Attend scheduled appointments Take medications as directed Assessment: Denies SI/HI/AH/VH No sx of psychosis or rakesh Patient Instructions: Depression (ED), Anemia (ED) Discharge Date/Time: 04/15/24 11:45
== END 2024-04-15 11:45 | disposition home or self-care (01) | DRG 751 ==
LOC: HO.ED 12:57 → HO.PM5 04-05 17:02
PROVIDERS: Admitting Provider Psychiatry & Neurology Psychiatry; Emergency Provider Emergency Medicine; Visit Provider Clinical Nurse Specialist Psychiatric/Mental Health, Adult
DX: F33.9 Major depressive disorder, recurrent, unspecified (principal); R45.851 Suicidal ideations; F11.20 Opioid dependence, uncomplicated; F17.210 Nicotine dependence, cigarettes, uncomplicated; Z71.6 Tobacco abuse counseling; F19.90 Other psychoactive substance use, unspecified, uncomplicated; Z79.899 Other long term (current) drug therapy
CPT/HCPCS: 0241U; 36415; 80048; 80061; 80076; 80307; 81003; 81025; 83036; 84439; 84443; 84702; 85025; 86308; 87651; 93005; 99285; S9485

== ENCOUNTER → 2024-04-05 14:02 | Outpatient (BNV) | payer MEDICAID, SELFPAY | PROVIDERS: Admitting Provider Psychiatry & Neurology Psychiatry; Emergency Provider Emergency Medicine; Visit Provider Internal Medicine | DX: R00.1 Bradycardia, unspecified (principal) | CPT/HCPCS: 93010 ==

== ENCOUNTER → 2024-04-05 15:38 | Outpatient (BNV) | payer MEDICAID, SELFPAY | PROVIDERS: Admitting Provider Psychiatry & Neurology Psychiatry; Emergency Provider Emergency Medicine; Visit Provider Clinical Nurse Specialist Psychiatric/Mental Health, Adult | DX: F33.2 Major depressive disorder, recurrent severe without psychotic features (principal); F19.90 Other psychoactive substance use, unspecified, uncomplicated | CPT/HCPCS: 90792; 99231; 99232; 99238 ==